=== PATIENT | female | born 1945 | race Caucasian/White ===

== ENCOUNTER 2024-10-08 17:09 | Emergency (ER) | payer MEDICAID ==
[~2024-10-08] VITALS: Ht 162.6 cm; Wt 89.1 kg
[2024-10-08 17:21] VITALS: TEMP 97.4
[2024-10-08 18:08] LABS: MEAN PLATELET VOLUME 7.1 FL (7.4-10.4); RED CELL DISTRIBUTION WIDTH 14.7 % (11.5-14.5)
[2024-10-08 18:21] LABS: CREATININE 0.71 MG/DL (0.40-0.90); TOTAL CARBON DIOXIDE 28.4 MMOL/L (24-32); eCRCL 58 ML/MIN; eGFR 80 ML/MIN
[2024-10-08 18:42] LABS: LYMPHOCYTES % (MANUAL) 74.0 % (21-51); MONOCYTES % (MANUAL) 3.0 % (2-12); NEUTROPHILS % (MANUAL) 23.0 % (42-75)
[2024-10-08 18:43] LABS: PLATELET ESTIMATE NORMAL
--- NOTE | 2024-10-08 19:56 | Physician Documentation ---
History of Present Illness ~ Chief Complaint: Diarrhea Stated Complaint: HEADACHE Time Seen by MD: 19:49 HPI Patient presents to the emergency room with generalized body aches headache dysuria and diarrhea that began yesterday. No sick contacts. She does have history of asthma as well as leukemia. She reports that she is not taking chemo because her doctor told her that it was not bad enough that she would need to take this medicine. No recent antibiotics. Reports subjective fevers. Medication Reconciliation Allergies: Coded Allergies: codeine (Verified Allergy, Unknown, 10/08/24) Review of Systems ROS All review of systems negative except as per HPI Physical Exam Vital Signs: Temperature: 97.4, Source: Temporal, Heart Rate: 67, Respiratory Rate: 16, BP: 119/65, Pulse Oximetry: 99, Weight: 89.100 Oxygen Flow Rate: 0 Physical Exam General: Patient is awake, alert, oriented x4 in no acute distress Head: Normocephalic and atraumatic. Eyes: Conjunctival normal. EOMI. PERRL. ENT: Mucous membranes moist. Neck: Supple, trachea is midline. Chest: Clear to auscultation bilaterally without rales, rhonchi, or wheezes. There is no accessory muscle use or retractions. Cardiac: RRR without murmurs, gallops, or rubs. Abd: Soft, nondistended, nontender, with normoactive bowel sounds. No guarding, rebound, or rigidity. Progress Progress Note We are able to obtain some labs from December 13, 2023 from [facility] which showed patient's white blood cell count at that time was 27.4. Results/Orders Results/Orders Orders - ABDULAZIZ KNIGHT MD Culture Blood (10/08/24 19:57) Covid19 Binax Poc Result Entry (10/08/24 19:59) Ketorolac Trometh 15mg/Ml Vial (Toradol (10/09/24 00:40) Acetaminophen 1,000mg/100ml Iv (Ofirmev (10/09/24 00:40) Completed Orders - ABDULAZIZ KNIGHT MD Procalcitonin (10/08/24 19:57) Lacticsepsis (10/08/24 19:57) Normal Saline 1000ml (0.9% Sodium Chlori (10/08/24 20:00) Ceftriaxone/H4x-Xpllzfag 1gm (Rocephin 1 (10/08/24 20:00) Loperamide Capsule (Imodium Capsule) (10/08/24 20:15) Ua W/Microscopic, Cult If Ind (10/08/24 22:17) Medications Received in ER Medications (Trade) Dose Ordered Sig/Dede Route PRN Reason Start Time Stop Time Status Last Admin Dose Admin Sodium Chloride 1,000 ml @ 1,000 mls/hr ONCE ONCE IV 10/08/24 20:00 10/08/24 20:59 DC 10/08/24 21:08 1,000 MLS/HR Ceftriaxone Sodium 50 ml @ 100 mls/hr ONCE ONCE IV 10/08/24 20:00 10/08/24 20:29 DC 10/08/24 21:08 100 MLS/HR (Imodium capsule) 4 mg ONCE ONCE PO 10/08/24 20:15 10/08/24 20:16 DC 10/08/24 21:07 4 MG Vital Signs 10/08/24 10/08/24 10/08/24 10/09/24 17:21 21:21 21:21 00:02 Temp 97.4 Pulse 67 55 59 Resp 16 16 16 16 B/P (MAP) 119/65 115/48 (70) 119/76 (90) Pulse Ox 99 95 98 O2 Flow Rate 0 0 0 Laboratory Tests Test 10/08/24 17:50 10/08/24 22:05 10/08/24 22:17 White Blood Count 23.8 H Red Blood Count 3.39 L Hemoglobin 11.4 L Hematocrit 33.2 L Mean Corpuscular Volume 98.0 Mean Corpuscular Hemoglobin 33.7 H Mean Corpuscular Hemoglobin Concent 34.3 Red Cell Distribution Width 14.7 H Platelet Count 170 Mean Platelet Volume 7.1 L Neutrophils (%) (Auto) 17.3 L Lymphocytes (%) (Auto) 80.5 H Monocytes (%) (Auto) 1.8 L Eosinophils (%) (Auto) 0.3 Basophils (%) (Auto) 0.1 Neutrophils # (Auto) 4.1 Lymphocytes # (Auto) 19.2 H Monocytes # (Auto) 0.4 Eosinophils # (Auto) 0.1 Basophils # (Auto) 0.0 CBC Comment Differential Total Cells Counted 100 Neutrophils % (Manual) 23.0 L Lymphocytes % (Manual) 74.0 H Monocytes % (Manual) 3.0 Smudge Cells 2+ Platelet Estimate Normal Red Blood Cell Morphology Perf Polychromasia Few Basophilic Stippling Anisocytosis 1+ Macrocytosis 1+ Sodium Level 140 Potassium Level 3.7 Chloride Level 107 Carbon Dioxide Level 28.4 Anion Gap 5 L Blood Urea Nitrogen 10 Creatinine 0.71 Estimated GFR/1.73 m2 80 BUN/Creatinine Ratio 14.1 Glucose Level 112 H Lactic Acid Level 0.9 Calcium Level 8.8 Albumin 3.7 Procalcitonin < 0.05 Chemistry Comments SARS-CoV-2 Antigen (Rapid) Positive *A Urine Specimen Description Non-specified Urine Color Straw Urine Clarity Slightly cloudy Urine pH 6.0 Urine Specific [place] 1.015 Urine Protein Negative Urine Glucose (UA) Negative Urine Ketones Negative Urine Occult Blood Trace-intact Urine Nitrite Negative Urine Bilirubin Negative Urine Urobilinogen 1.0 Urine Leukocyte Esterase Negative Urine RBC 0-2 Urine WBC 0-4 Urine Squamous Epithelial Cells Moderate Urine Bacteria 1+ Urine Mucus Moderate Urine Culture Indicated Not ind Volume Urine Centrifuged 10 ml Urine Comment Microbiology Date/Time Source Procedure Growth Status 10/08/24 20:10 Blood Arm Left Blood Culture - Preliminary NEGATIVE (LESS THAN 24 HOURS) Resulted Medical Decision Making Findings Patient presents to the emergency room with diarrhea body aches and headache as per HPI. Differentials include but are not limited to dehydration, electrolyte disturbances, viral syndrome, pneumonia therefore emergent labs and imaging indicated. Labs and imaging reassuring aside from COVID. She is responding to therapy. The need to control her body aches and symptoms with [id number] remedies discussed however she does not have any ibuprofen or Tylenol home therefore write a prescription for this as well as Paxlovid and loperamide. ER precautions discussed. She is nontoxic appearing with stable vitals. She does have elevated white blood cell counts however given her history of reported leukemia along with comparing her current labs previous labs I do not believe this represents bacterial infection. The need to follow up with her doctor discussed. Departure Disposition: HOME / SELF CARE / HOMELESS Impression: Primary Impression: COVID-19 Condition: Stable Discharge Instructions: Viral Illness, Adult Additional Instructions: Controlling your symptoms with ibuprofen and Tylenol and make you feel so much better. Encourage fluids. Follow up with your doctor regarding management of your reported leukemia. White blood cell count today was 23. Referrals: NO PRIMARY CARE PROVIDER (PCP) Prescriptions Loperamide Hcl (Loperamide) 2 Mg Capsule 2 CAP PO Q6H for loose stool for 5 Days, #40 CAP 0 Refills Prov: ABDULAZIZ KNIGHT MD 10/09/24 Acetaminophen (Tylenol Extra Strength) 500 Mg Tablet 2 TABLET PO Q6H, #30 TABLET 1 Refill Prov: ABDULAZIZ KNIGHT MD 10/09/24 Ibuprofen* (Motrin*) 400 Mg Tablet 400 MG PO Q6H, #30 TAB Prov: ABDULAZIZ KNIGHT MD 10/09/24 Nirmatrelvir/Ritonavir (Paxlovid 300-100 mg Dose Pack) 300 Mg (150 Mg X 2)-100 Mg Tab.ds.pk 1 DOSPAK PO BID for 5 Days, #1 BOXS Prov: ABDULAZIZ KNIGHT MD 10/09/24 Education Educated: Patient Educated regarding: diagnosis, treatment, need for follow up Signature Scribe Signature: No scribe Attestation: The note accurately reflects work and decisions made by me.Abdulaziz Knight MD 10/09/24 00:44 ABDULAZIZ KNIGHT MD Oct 08, 2024 19:56
[2024-10-08] MEDS: loperamide 2mg capsule PO ONE (21:07)
[2024-10-08] MEDS: normal saline 1000ml 1,000 ML IV ONE (21:08)
[2024-10-08] MEDS: CefTRIAXone/D5W-Rocephin 1gm 50 ML IV ONE (21:08)
[2024-10-08 22:28] LABS: LEUKOCYTE ESTERASE ,URINE NEGATIVE (Neg); NITRITES, URINE NEGATIVE (Neg); OCCULT BLOOD,URINE TRACE-INTACT (Neg)
[2024-10-08 22:29] LABS: UA COLLECTION TYPE NON-SPECIFIED
[2024-10-08 22:33] LABS: MUCUS STRANDS MODERATE /LPF (Neg); SQUAMOUS EPITHELIAL CELL,UR MODERATE /LPF (FEW)
[2024-10-09] MEDS ORDERED: ACET-812 PO (00:44)
[2024-10-09] MEDS ORDERED: IBUP-1984 PO (00:44)
[2024-10-09] MEDS ORDERED: NIRM1TAB13 PO (00:44)
[2024-10-09] MEDS ORDERED: LOPE2CAP PO (00:44)
[2024-10-09] MEDS: ketorolac trometh 15mg/ml vial 15 MG/ML ML IV ONE (00:56)
[2024-10-09] MEDS: acetaminophen 1,000mg/100ml IV 100 ML IV ONE (00:57)
[2024-10-09 01:02] VITALS: BP 138/75; PULSE 54; RESP 16; O2SAT 98
== END 2024-10-09 01:36 | disposition home or self-care (01) ==
LOC: ER 17:10
DX: U07.1 COVID-19 (principal); J45.909 Unspecified asthma, uncomplicated; Z88.5 Allergy status to narcotic agent; Z20.822 Contact with and (suspected) exposure to COVID-19
CPT/HCPCS: 36415; 80048; 81001; 83605; 84145; 85025; 87040; 87811; 96365; 96366; 96375; 99284; J0131; J0696; J1885; J7030; 85007

== ENCOUNTER 2024-10-27 19:23 | Inpatient (IN) | payer MEDICAID ==
[~2024-10-27] VITALS: Ht 162.6 cm; Wt 73.0 kg
[~2024-10-27 19:23] MED LIST: ACET-812 PO; IBUP-1984 PO; LOPE2CAP PO; NIRM1TAB13 PO
--- NOTE | 2024-10-27 20:31 | RADIOLOGY REPORT ---
CLINICAL INDICATION: abdominal pain TECHNIQUE: 2 radiographic views of the abdomen and pelvis were obtained. Comparison: None FINDINGS/IMPRESSION: Nonspecific bowel gas pattern. No evidence of bowel obstruction or ileus. Moderate to large amount of fecal material within the colon with rectal fecal impaction. Nonspecific 2.9 by 2.4 cm density within the right hemipelvis. CT should be considered for further ev aluation. Phleboliths are noted within the pelvis. No evidence of acute osseous abnormalities.
[2024-10-27] MEDS ORDERED: iohexol 300mg/ml 100ml inj. ONE (21:26)
[2024-10-27 21:42] LABS: MEAN PLATELET VOLUME 7.3 FL (7.4-10.4)
[2024-10-27 21:43] LABS: RED CELL DISTRIBUTION WIDTH 14.1 % (11.5-14.5)
[2024-10-27 22:01] LABS: CREATININE 0.92 MG/DL (0.40-0.90); TOTAL CARBON DIOXIDE 25.8 MMOL/L (24-32); eCRCL 45 ML/MIN; eGFR 59 ML/MIN
[2024-10-27 22:16] LABS: EOSINOPHILS % (MANUAL) 1 % (0-6); LYMPHOCYTES % (MANUAL) 78 % (21-51); MONOCYTES % (MANUAL) 1 % (2-12); NEUTROPHILS % (MANUAL) 21 % (42-75); PLATELET ESTIMATE NORMAL
[2024-10-27] MEDS: normal saline 1000ML IV soln IVB ONE (22:56)
[2024-10-27] MEDS: lactulose 20gm/30ml cup PO ONE (23:36)
[2024-10-27 23:47] LABS: LEUKOCYTE ESTERASE ,URINE MODERATE (Neg); NITRITES, URINE NEGATIVE (Neg); OCCULT BLOOD,URINE MODERATE (Neg)
[2024-10-27 23:48] LABS: UA COLLECTION TYPE NON-SPECIFIED
--- NOTE | 2024-10-27 23:51 | Physician Documentation ---
History of Present Illness ~ Chief Complaint: Constipation Stated Complaint: ABD PAIN/CONSTIPATION Time Seen by MD: 20:58 OK to notify your PCP?: Yes Source: patient HPI This is a 78-year-old female who presents with two days of constipation and worsening lower abdominal discomfort, patient reports last bowel movement two days prior. Patient reports no vomiting. Patient reports no other acute symptoms or concerns. Medication Reconciliation Allergies: Coded Allergies: codeine (Verified Allergy, Unknown, 10/08/24) Scheduled Acetaminophen (Tylenol Extra Strength), 2 TABLET PO Q6H Ibuprofen* (Motrin*), 400 MG PO Q6H Loperamide Hcl (Loperamide), 2 CAP PO Q6H Nirmatrelvir/Ritonavir (Paxlovid 300-100 mg Dose Pack), 1 DOSPAK PO BID Past Medical History Past Medical History: Leukemia Smoking Status: Never smoker Review of Systems All Other Systems at this time: Reviewed and Negative ROS As stated above in the HPI, otherwise all systems are reviewed and negative. Physical Exam Vital Signs: RN Vital Signs have been reviewed: Yes, Temperature: 98.7, Source: Oral, Heart Rate: 81, Respiratory Rate: 16, BP: 119/65, Pulse Oximetry: 96, Weight: 73.000 Oxygen Flow Rate: 0 Physical Exam VITALS: Reviewed and as above. GENERAL: Alert, nontoxic appearing, no apparent distress. RESPIRATORY: No increased work of breathing, no respiratory distress, speaking in full clear sentences, clear lung sounds in all koo CV: Regular rate and rhythm no murmur BACK: No CVA tenderness GI: Mild lower abdomen tenderness otherwise nontender to palpation, soft, nondistended, no rebound, no guarding, bowel sounds present and normal Progress Progress Note 1:00 a.m. discussed the case with the hospitalist regarding admission Results/Orders Results/Orders Orders - KAYODE HELMS Saline Lock (10/27/24 21:17) Straight Cath For Urine Sample (10/27/24 21:17) Ct Abdomen Pelvis (10/27/24 21:17) * Soap Suds Enema* (10/27/24 23:02) Cult Urine + [place] Ct (10/27/24 23:54) Completed Orders - KAYODE EHLMS Cbc/Diff (10/27/24 21:17) Lipase (10/27/24 21:17) CMP (10/27/24 21:17) Ct Abdomen Pelvis (10/27/24 21:17) BMP (10/27/24 21:17) Iohexol 300mg/Ml 100ml Inj. (Omnipaque-3 (10/27/24 21:26) Man Diff (10/27/24 21:34) Normal Saline 1000ml (0.9% Sodium Chlori (10/27/24 22:25) Lactulose Oral Solution (Cephulac Oral S (10/27/24 23:05) Ua W/Microscopic, Cult If Ind (10/27/24 23:40) PBNP (10/27/24 21:34) Hgb A1c (10/27/24 21:34) MG (10/27/24 21:34) PHOS (10/27/24 21:34) Vital Signs 10/27/24 10/27/24 10/28/24 19:30 22:05 01:00 Temp 98.7 98.6 98.6 Pulse 81 80 78 Resp 16 18 18 B/P (MAP) 119/65 118/64 (82) 116/60 (78) Pulse Ox 96 99 99 O2 Flow Rate 0 Laboratory Tests Test 10/27/24 21:34 10/27/24 23:40 White Blood Count 22.4 H Red Blood Count 3.14 L Hemoglobin 10.5 L Hematocrit 31.3 L Mean Corpuscular Volume 99.7 H Mean Corpuscular Hemoglobin 33.5 H Mean Corpuscular Hemoglobin Concent 33.6 Red Cell Distribution Width 14.1 Platelet Count 171 Mean Platelet Volume 7.3 L Neutrophils (%) (Auto) 25.6 L Lymphocytes (%) (Auto) 71.8 H Monocytes (%) (Auto) 2.2 Eosinophils (%) (Auto) 0.3 Basophils (%) (Auto) 0.1 Neutrophils # (Auto) 5.7 Lymphocytes # (Auto) 16.1 H Monocytes # (Auto) 0.5 Eosinophils # (Auto) 0.1 Basophils # (Auto) 0.0 CBC Comment Differential Total Cells Counted 100 Neutrophils % (Manual) 21 L Lymphocytes % (Manual) 78 H Monocytes % (Manual) 1 L Eosinophils % (Manual) 1 Smudge Cells 3+ Platelet Estimate Normal Red Blood Cell Morphology Perf Basophilic Stippling Macrocytosis Few Sodium Level 145 Potassium Level 3.8 Chloride Level 111 H Carbon Dioxide Level 25.8 Anion Gap 8 Blood Urea Nitrogen 17 Creatinine 0.92 H Estimated GFR/1.73 m2 59 BUN/Creatinine Ratio 18.5 Glucose Level 97 Hemoglobin A1c < 3.8 L Calcium Level 9.0 Phosphorus Level 3.7 Magnesium Level 2.6 H Total Bilirubin 1.4 H Aspartate Amino Transf (AST/SGOT) 20 Alanine Aminotransferase (ALT/SGPT) 13 Alkaline Phosphatase 83 Pro-B-Type Natriuretic Peptide 352 Total Protein 6.8 Albumin 3.8 Globulin 3.0 Albumin/Globulin Ratio 1.3 Lipase 18 Chemistry Comments Urine Specimen Description Non-specified Urine Color Yi Urine Clarity Cloudy Urine pH 6.0 Urine Specific [place] 1.015 Urine Protein Negative Urine Glucose (UA) Negative Urine Ketones Negative Urine Occult Blood Moderate H Urine Nitrite Negative Urine Bilirubin Negative Urine Urobilinogen 0.2 Urine Leukocyte Esterase Moderate H Urine RBC 10-20 Urine WBC 5-10 H Urine Squamous Epithelial Cells Few Urine Bacteria 3+ Urine Hyaline Casts 3-5 Urine Mucus Many Urine Culture Indicated Indicated Volume Urine Centrifuged 10 ml Urine Comment Microbiology Date/Time Source Procedure Growth Status 10/27/24 23:54 Urine Nonspecified Urine Culture - Preliminary MIXED [place] ISOLATED.... Resulted EKG/XRAY/CT/US/VASC/MRI Abdominal X-Ray : Additional Comment Exam: ABDOMEN,SINGLE VIEW(KUB) CLINICAL INDICATION: abdominal pain TECHNIQUE: 2 radiographic views of the abdomen and pelvis were obtained. Comparison: None FINDINGS/IMPRESSION: Nonspecific bowel gas pattern. No evidence of bowel obstruction or ileus. Moderate to large amount of fecal material within the colon with rectal fecal impaction. Nonspecific 2.9 by 2.4 cm density within the right hemipelvis. CT should be considered for further evaluation. Phleboliths are noted within the pelvis. No evidence of acute osseous abnormalities. Electronically Signed by:MALLORY BE DO Date & Time: 10/27/242028 Dictated by: MALLORY BE DO Dictation date and time: 10/27/242001 I have reviewed and agree with the radiology report. I have reviewed and interpreted the imaging as: No air-fluid levels to suggest bowel obstruction, large stool burden in the colon CT : Impression Exam: CT ABDOMEN PELVIS CLINICAL HISTORY: Lower Abd Pain TECHNIQUE: CT of the abdomen and pelvis was performed with intravenous contrast. 100 mL Omnipaque 300 injected This exam was performed according to our departmental dose optimization program. Up-to-date CT equipment and radiation dose reduction techniques are utilized as appropriate. CTDIVol: 30.17 mGy DLP: 1507.62 mGy-cm WID: COMPARISON: None FINDINGS: Lower Thorax: Normal-sized heart. Linear bibasilar scarring or atelectasis. Liver and Biliary system: Prior cholecystectomy, otherwise unremarkable. Spleen: Unremarkable. Adrenal Glands and Kidneys: Normal adrenal glands. There is bilateral renal cortical scarring. No hydronephrosis or nephrolithiasis. Pancreas and Retroperitoneum: Unremarkable. Aorta and Major Vessels: Aortoiliac vessels are patent and normal caliber with mild calcified atherosclerotic plaque. Bowel, Mesentery and Peritoneal space: Mildly dilated rectum measuring 7.3 cm AP containing impacted moderate stool. Normal caliber small and large bowel. There is pancolonic diverticulosis, moderate distally. No free air or fluid collection. Moderate retained stool in the colon. Pelvis: Prior hysterectomy. Urinary bladder is mildly distended. There is no pelvic lymphadenopathy. Abdominal wall and Osseous Structures: Small fat containing bilateral inguinal and umbilical hernias. Multilevel lower thoracic and lumbar spondylosis. IMPRESSION: 1. Mildly dilated rectum containing moderate impacted stool. 2. Moderate retained stool in the colon. 3. Pancolonic diverticulosis, moderate distally. Electronically Signed by:JAJA YAÑEZ MD Date & Time: 10/28/24125 Dictated by: JAJA YAÑEZ MD Dictation date and time: 10/28/24125 I have reviewed and agree with the radiology report. I have reviewed and interpreted the imaging as: Large stool burden, No evidence of intraperitoneal free air Medical Decision Making Findings This 78-year-old female presented with two days of constipation and lower abdomen discomfort, physical exam did not demonstrate significant tenderness to palpation of the abdomen to make me suspect emergent cause of abdominal pain, imaging demonstrated evidence of significant stool burden consistent with patient's described constipation, I suspect discomfort in lower abdomen related to stool burden. CT abdomen and pelvis with contrast obtained and demonstrated diverticulitis and large stool burden without evidence of bowel perforation, appendicitis, or bowel obstruction. Of note patient did have an elevated WBC, though review of previous records indicate patient has history of leukemia and WBC is slightly lower from previous visit which is reassuring, though given e vidence of urinary tract infection and diverticulitis patient will require admission for IV antibiotics and further evaluation and monitoring. Patient treated with rehydration and lactulose for constipation. Enema by nursing staff resulted in patient beginning to pass stool. Case discussed and signed out to ED attending Dr. Mariscal prior to call back from hospitalist. Diff Dx Pain:Considerations: Include: Appendicitis, Bowel obstruction, Diverticular disease, Gastritis/PUD, Gastroenteritis, GI hemorrhage, Hernia, Inflammatory BD, Ischemic bowel, Urinary obstruction, Urinary tract infection Departure Disposition: ADMITTED INPATIENT Admitted to Inpatient Unit: to hospitalist Impression: Primary Impression: Constipation Qualified Codes: K59.00 - Constipation, unspecified Additional Impressions: Fecal impaction Acute UTI (urinary tract infection) Leukemia Qualified Codes: C95.90 - Leukemia, unspecified not having achieved rem ission Condition: Improved Discharge Instructions: Constipation, Adult Referrals: NO PRIMARY CARE PROVIDER (PCP) Education Educated: Patient Educated regarding: diagnosis, treatment, prognosis, need for follow up Signature Scribe Signature: No scribe Attestation: The note accurately reflects work and decisions made by me.SERENA Oliva 10/29/24 15:06 KAYODE HELMS Oct 27, 2024 23:51 INDY MARISCAL MD Oct 28, 2024 01:02
[2024-10-27 23:52] LABS: MUCUS STRANDS MANY /LPF (Neg); SQUAMOUS EPITHELIAL CELL,UR FEW /LPF (FEW)
[2024-10-28] VITALS (10 sets, daily range): BP systolic 95–131; BP diastolic 44–68; PULSE 48–64; RESP 14–18; TEMP 97.4–98.2; O2SAT 94–100
--- NOTE | 2024-10-28 01:28 | RADIOLOGY REPORT ---
CLINICAL HISTORY: Lower Abd Pain TECHNIQUE: CT of the abdomen and pelvis was performed with intravenous contrast. 100 mL Omnipaque 300 injected This exam was performed according to our departmental dose optimization program. Up-to-date CT equipment and radiation dose reduction techniques are utilized as appropriate. CTDIVol: 30.17 mGy DLP: 1507.62 mGy-cm WID: COMPARISON: None FINDINGS: Lower Thorax: Normal-sized heart. Linear bibasilar scarring or atelectasis. Liver and Biliary system: Prior cholecystectomy, otherwise unremarkable. Spleen: Unremarkable. Adrenal Glands and Kidneys: Normal adrenal glands. There is bilateral renal cortical scarring. No hyd ronephrosis or nephrolithiasis. Pancreas and Retroperitoneum: Unremarkable. Aorta and Major Vessels: Aortoiliac vessels are patent and normal caliber with mild calcified atheros clerotic plaque. Bowel, Mesentery and Peritoneal space: Mildly dilated rectum measuring 7.3 cm AP containing impacted moderate stool. Normal caliber small and large bowel. There is pancolonic diverticulosis, moderate di stally. No free air or fluid collection. Moderate retained stool in the colon. Pelvis: Prior hysterectomy. Urinary bladder is mildly distended. There is no pelvic lymphadenopathy. Abdominal wall and Osseous Structures: Small fat containing bilateral inguinal and umbilical hernias. Multilevel lower thoracic and lumbar spondylosis. IMPRESSION: 1. Mildly dilated rectum containing moderate impacted stool. 2. Moderate retained stool in the colon. 3. Pancolonic diverticulosis, moderate distally.
[2024-10-28 01:35] LABS: PRO BRAIN NATRIURETIC PEPTIDE 352 PG/ML (0-450)
[2024-10-28] MEDS ORDERED: ondansetron/PF 4mg/2ml inj IV PRN (01:40)
[2024-10-28] MEDS ORDERED: potassium Cl 40MEQ/1/2NS 520ml 520 ML IV PRN (01:40)
[2024-10-28] MEDS ORDERED: magnesium sulf-water 2g/50mL 50 ML IV PRN (01:40)
[2024-10-28] MEDS ORDERED: mag hydrox/Alum hydrox/simeth 30ml oral suspension PO PRN (01:40)
[2024-10-28] MEDS ORDERED: potassium Cl 20 mEq SR tablet PO PRN ×2 (01:40)
[2024-10-28] MEDS ORDERED: magnesium Cl slow-release 64mg tablet PO PRN (01:40)
[2024-10-28] MEDS ORDERED: magnesium hydroxide 30ml (MOM) UD suspension PO PRN (01:40)
[2024-10-28] MEDS ORDERED: magnesium sulf-water 4G/100mL 100 ML IV PRN (01:40)
[2024-10-28 02:07] LABS: PHOSPHORUS 3.7 MG/DL (2.3-4.5)
--- NOTE | 2024-10-28 02:16 | HISTORY AND PHYSICAL-Residence ---
History & Physical Providers to CC Resident Creating Document: ARIC MCGILL, RES ~ History of Present Illness Reason for Admit\Complaint: Acute abdominal pain, UTI History of Present Illness 78-year-old female with past medical history of leukemia, COPD presented to the ER with chief complaint of lower abdominal pain and not being able to pass stools since the last two days. She reports that she has not been able to pass any stools since the last two days but has a a feeling where she needs to pass stools but is not able to do so. She mentioned that the passing stools has been getting worse with the increasing lower abdominal pain and rates his abdominal pain nine on a scale of 10. The patient also mentioned that she has been having increased urinary frequency and urgency over the last two days associated with fever and chills during the night. She denied any similar concerns or complaints in the past. The patient denied any episodes of nausea or vomiting. The patient currently denies any headaches, confusion, dizziness, nausea, vomiting, chest pain, shortness of breath, paroxysmal nocturnal dyspnea. She mentioned that she has been noticing bilateral lower extremity edema with the past few months that has been progressively getting worse. He also mentioned that she has a history of leukemia diagnosed almost one year ago. She does not remember the name of the doctor she was following for the cancer but is currently not following anybody as she has difficulty getting to the DrMalachi. He is not sure which hospital the is practicing and where she is seeing him. [id number] not sure about the name of the clinic Allergies: Coded Allergies: codeine (Verified Allergy, Unknown, 10/08/24) Home Medications Home Medications Active Loperamide (Loperamide Hcl) 2 Mg Capsule 2 Cap PO Q6H 5 Days Tylenol Extra Strength (Acetaminophen) 500 Mg Tablet 2 Tablet PO Q6H Motrin* (Ibuprofen) 400 Mg Tablet 400 Mg PO Q6H Paxlovid 300-100 mg Dose Pack (Nirmatrelvir/Ritonavir) 300 Mg (150 Mg X 2)-100 Mg Tab.ds.pk 1 [place] PO BID 5 Days Past Medical History Past Medical History Leukemia, COPD Past Surgical History Surgical History Comment Hysterectomy Past Social History Social History Comment Lives at a moment's fdc Denies smoking, alcohol, recreational drug use ROS All Other Systems: Reviewed and Negative ROS As stated above in the HPI, otherwise all systems are reviewed and negative. Exam Vitals: Vital Signs Date Time Temp Pulse Resp B/P (MAP) Pulse Ox O2 Delivery O2 Flow Rate FiO2 10/28/24 01:00 98.6 78 18 116/60 (78) 99 10/27/24 19:30 0 General: General: Awake and Alert, no acute distress. HEENT: Conjunctiva pink, Sclera clear, Mucus Membranes moist. Neck: Supple without masses and tenderness. Resp: Unlabored. Lungs clear to auscultation bilaterally. Heart: Regular Rate and rhythm, normal S1 and S2 without murmur, rub or gallop. Abdomen: Soft, tenderness on palpation of the right lower and middle lower quadrant. No guarding or rigidity present. Bowel sounds present. Extremities: Bilateral 2+ pitting edema present in the lower extremity. Skin: Warm and Dry. Neurology: Cranial nerves 2-12 intact. No focal motor or sensory deficits. Diagnostic Data Last Recorded Lab Results: 10/27/24213310/27/242133 Advance Care Planning Advanced Care planning: Add on additional 30 min Additional Plan UTI Patient reports increased urgency and frequency with the last two days associated fever and chills. Urine analysis positive for leukocyte esterase, 5-10 WBCs, 3+ bacteria. Started the patient on IV ceftriaxone. Follow up with the urine culture and blood culture. Continue hydration with IV fluids. Acute abdominal pain Secondary to fecal impaction versus acute on chronic constipation Diverticulosis CT scan of the abdomen/pelvis with IV contrast shows mildly dilated rectum on containing moderate impacted stools with a moderate retention of stool in the colon. There is also found colonic diverticulosis. Follow up with the lactic acid, TSH. Patient had an enema and lactulose given in the ER. Reports that she started having bowel movements and mild in if in her abdominal pain. Continue MiraLax and docusate. IV Protonix for GI prophylaxis Can give one more dose of enema if the patient's fecal impaction is not relieved in the a.m.. Encourage increased fiber intake in the diet. Continue monitoring the patient's electrolytes. Continue supportive care with hydration and pain management. COPD, not in exacerbation Bilateral clear airways. DuoNeb nebulizations q.4 hours as needed. RT eval and treat. Leukemia Elevated WBC of 22.4. Currently not on any treatment for the leukemia. CODE STATUS: DNR DVT prophylaxis: SCDs GI prophylaxis: IV Protonix Diet: Regular Disposition: Continue medical management. Follow up with the urine culture and blood cultures patient Aric Mcgill MD Internal Medicine Resident, PGY-3 I discussed the case with the resident and agree with the assessment and plan as above with no changes. Amarilys Philip MD Critical Care Date of Service: Oct 28, 2024 Billing Provider: AMARILYS PHILIP MD,ARIC CHEEMA, RES Oct 28, 2024 02:16 AMARILYS PHILIP MD Nov 03, 2024 21:34
[2024-10-28] MEDS: CefTRIAXone/D5W-Rocephin 1gm 50 ML IV ONE (02:40)
[2024-10-28 03:00] LABS: LACTATE DEHYDROGENASE 221.0 U/L (81-234)
[2024-10-28] MEDS: normal saline 1000ml 1,000 ML IV ONE (03:00)
[2024-10-28] MEDS: normal saline 1000ml 1,000 ML IV SCH (03:22)
[2024-10-28] MEDS: K and/or MAG REPLACEMENT MC SCH (07:03)
[2024-10-28] MEDS: polyethylene glycol 3350 17gm powd pack PO SCH (07:03)
[2024-10-28] MEDS: docusate sod 100mg capsule PO SCH (08:00)
[2024-10-28] MEDS ORDERED: mineral oil 133ml enema RC PRN (08:25)
[2024-10-28] MEDS: ipratropium/albuterol 3ml nebule NEB PRN (16:01)
--- NOTE | 2024-10-28 17:43 | CARDIOLOGY REPORT ---
APPROVED REPORT EXAM: Comprehensive 2D, Doppler, and color-flow Echocardiogram. Patient Location: 349 B Heart Rate: 50'S bpm Rhythm: SINUS BRADYCARDIA Indications CONGESTIVE HEART FAILURE COPD Anodizing Line Operator: NONE Previous echo: NONE 2D Dimensions RVDd 3.6 cm LA Diam3.3 cm LVDd 4.9 cm LVOT Diameter 1.90 (1.8-2.4cm) M-Mode Dimensions Aortic Root 3.27 (2.2-3.7cm) Aortic Valve AoV Peak Bryan. 155.6 cm/s AoV VTI 33.7 cm AO Peak GR. 9.7 mmHg AO Mean GR. 5 mmHg LVOT VTI 26.60 cm LVOT Peak Bryan. 128.4 cm/s PUSHPA(VTI)/BSA 2.25 cm2/m2 PUSHPA (VTI) 2.25 cm2 Mitral Valve MV Peak Gr. 8 mmHg MV PHT 64 ms MVA (PHT) 3.44 cm2 MV OMhl972.2 cm/s Tricuspid Valve TR P. Velocity 268 cm/s RAP ESTIMATE 10 mmHg TR Peak Gr. 29 mmHg RVSP 39 mmHg LEFT VENTRICLE Normal LV size and wall thickness. Overall systolic function is normal. Overall LVEF is 60-65%. RIGHT VENTRICLE RV is mildly dilated with normal function. Estimated PA systolic pressure of 39 mm of mercury. ATRIA The left atrium size is normal. AORTIC VALVE Trileaflet AV appears mildly sclerotic without stenosis. No insufficiency. MITRAL VALVE Mild MV annular calcification without stenosis. Trace regurgitation. TRICUSPID VALVE TV appears structurally normal with trace regurgitation. PULMONIC VALVE Normal PV without stenosis, physiologic insufficiency. GREAT VESSELS The aortic root is normal in size. Normal appearing arch with normal flow velocities. PERICARDIUM Normal pericardium. No effusion. Other Information Study Quality: Adequate but difficult due to imaging windows and patient being uncooperative. Conclusion Overall LVEF is 60-65%. Normal LV size and wall thickness. Overall systolic function is normal. RV is mildly dilated with normal function. Estimated PA systolic pressure of 39 mm of mercury. Trileaflet AV appears mildly sclerotic without stenosis. No insufficiency. Mild MV annular calcification without stenosis. Trace regurgitation. TV appears structurally normal with trace regurgitation. Normal PV without stenosis, physiologic insufficiency. Normal pericardium. No effusion.
[2024-10-28] MEDS: lactose-reduced food (Ensure Enlive) - 237ml bottle PO SCH (18:00)
[2024-10-29 05:05] LABS: MEAN PLATELET VOLUME 7.1 FL (7.4-10.4); RED CELL DISTRIBUTION WIDTH 13.8 % (11.5-14.5)
[2024-10-29 05:31] LABS: CHOL/HDL RATIO 2.5 (0.00-4.99); CREATININE 0.55 MG/DL (0.40-0.90); LDL CHOLESTEROL 70 MG/DL (50-100); TOTAL CARBON DIOXIDE 26.3 MMOL/L (24-32); eCRCL 75 ML/MIN; eGFR > 90 ML/MIN
[2024-10-29 06:00] VITALS: BP 102/41; PULSE 56; RESP 14; TEMP 97.9; O2SAT 98
[2024-10-29 08:30] VITALS: PULSE 67; RESP 17; O2SAT 94
[2024-10-29 08:44] LABS: EOSINOPHILS % (MANUAL) 1.0 % (0-6); LYMPHOCYTES % (MANUAL) 70.0 % (21-51); MONOCYTES % (MANUAL) 2.0 % (2-12); NEUTROPHILS % (MANUAL) 27.0 % (42-75); PLATELET ESTIMATE DECREASED
[2024-10-29] MEDS: CefTRIAXone/D5W-Rocephin 1gm 50 ML IV SCH (09:06)
--- NOTE | 2024-10-29 11:44 | PROGRESS NOTE ---
Daily Progress Note Providers to CC ~ Antibiotic Timeout Antibiotic Ordered?: Yes Subjective No acute events overnight. Patient examined at bedside. No new complaints, not in acute distress. Patient denies chest pain, sob, palpitations, abdominal pain, n/v/d. Vss, labs notable for downtrending Cr on IVF. Objective Vital Signs Date Time Temp Pulse Resp B/P (MAP) Pulse Ox O2 Delivery O2 Flow Rate FiO2 10/29/24 08:30 67 17 94 Room Air* 0 21 10/29/24 06:00 97.9 102/41 (61) Result Diagram: 10/29/2443410/29/24434 Physical Exam General: Generalized weakness, A&Ox 3, NAD HEENT: Normocephalic, PERRLA Neck: Supple, trachea midline, no JVD Chest: Clear to auscultation bilaterally Cardiovascular: RRR, S1&S2 GI: Soft and nontender Extremities: No cyanosis/clubbing/or edema ACCOUNTANT MANAGER: CN II-XII intact, no focal deficits Musculoskeletal: No paraspinal muscle tenderness, no muscle spasm Skin: Warm and intact Problem\Assessment\Plan Assessment & Plan UTI Prerenal HILARY 2/2 dehydration/vasomotor nephropathy- POA Fecal impaction -Rocephin, IVF, had BM with stool softner/laxatives COPD, not in exacerbation -prn bronchodilator CLL -monitor CODE STATUS: DNR Date of Service: Oct 29, 2024 Billing Provider: DARRELL MEADOWS Common Visit Codes: [id number] INP/OBS CARE(HIGH) DARRELL MEADOWS Oct 29, 2024 11:44
[2024-10-29 13:24] VITALS: BP 104/47; PULSE 53; RESP 18; TEMP 97.1; O2SAT 96
[2024-10-29 18:00] VITALS: BP 102/42; PULSE 50; RESP 17; TEMP 97.5; O2SAT 97
[2024-10-29] MEDS: docusate sod 100mg capsule PO SCH (19:31)
[2024-10-29 20:59] VITALS: PULSE 52; RESP 16; O2SAT 97
[2024-10-29 22:00] VITALS: BP 120/53; PULSE 68; RESP 22; TEMP 97.7; O2SAT 98
[2024-10-30 05:19] LABS: MEAN PLATELET VOLUME 7.5 FL (7.4-10.4)
[2024-10-30 05:22] LABS: RED CELL DISTRIBUTION WIDTH 13.6 % (11.5-14.5)
[2024-10-30 05:41] LABS: CREATININE 0.64 MG/DL (0.40-0.90); TOTAL CARBON DIOXIDE 26.8 MMOL/L (24-32); eCRCL 65 ML/MIN; eGFR 90 ML/MIN
[2024-10-30 06:31] VITALS: BP 116/51; PULSE 47; RESP 14; TEMP 97.8; O2SAT 99
[2024-10-30 07:12] VITALS: PULSE 52; RESP 18; O2SAT 98
[2024-10-30 08:16] VITALS: BP 116/71; PULSE 50; RESP 14; TEMP 98.5; O2SAT 97
[2024-10-30 08:25] VITALS: BP 116/71; PULSE 50; RESP 14; TEMP 98.5; O2SAT 97
[2024-10-30 08:29] VITALS: RESP 14; O2SAT 97
[2024-10-30 09:22] LABS: EOSINOPHILS % (MANUAL) 1.0 % (0-6); LYMPHOCYTES % (MANUAL) 70.0 % (21-51); MONOCYTES % (MANUAL) 2.0 % (2-12); NEUTROPHILS % (MANUAL) 27.0 % (42-75); PLATELET ESTIMATE DECREASED
[2024-10-30] MEDS ORDERED: DOCU100C40 PO (10:08)
[2024-10-30] MEDS ORDERED: PANT40TA54 PO (10:09)
[2024-10-30 11:27] VITALS: BP 115/42; PULSE 58; RESP 17; TEMP 97.5; O2SAT 99
--- NOTE | 2024-10-30 14:32 | DISCHARGE SUMMARY ---
Discharge Summary Providers to CC ~ Discharge Summary Admission Diagnosis: UTI, HILARY, ACUTE ABDOMINAL PAIN 2/2 FECAL IMPACTION, CHRONIC CONSTIPATION Hospital Course DATE OF ADMISSION: 10/28/24 DATE OF DISCHARGE: 10/30/24 Discharge Diagnosis\\Comment: Prerenal HILARY 2/2 dehydration/vasomotor nephropathy- POA UTI Fecal impaction Chronic constipation Operations\\Procedures: None Consultants: None Complications: None Condition on DC: Stable New Medications: Docusate Sodium (Docusate Sodium) 100 Mg Caps 1 CAP PO Q12H for constipation for 30 Days, #60 CAP 0 Refills Pantoprazole Sodium (Pantoprazole Sodium) 40 Mg Tablet.dr 40 MG PO DAILY for 30 Days, #30 TAB.SR Continued Medications: Acetaminophen (Tylenol Extra Strength) 500 Mg Tablet 2 TABLET PO Q6H, #30 TABLET 1 Refill Discontinued Medications: Ibuprofen* (Motrin*) 400 Mg Tablet 400 MG PO Q6H, #30 TAB Loperamide Hcl (Loperamide) 2 Mg Capsule 2 CAP PO Q6H for loose stool for 5 Days, #40 CAP 0 Refills Nirmatrelvir/Ritonavir (Paxlovid 300-100 mg Dose Pack) 300 Mg (150 Mg X 2)-100 Mg Tab.ds.pk 1 DOSPAK PO BID for 5 Days, #1 BOXS Discharge Summary: History of Present Illness From H&P: "78-year-old female with past medical history of leukemia, COPD presented to the ER with chief complaint of lower abdominal pain and not being able to pass stools since the last two days. She reports that she has not been able to pass any stools since the last two days but has a a feeling where she needs to pass stools but is not able to do so. She mentioned that the passing stools has been getting worse with the increasing lower abdominal pain and rates his abdominal pain nine on a scale of 10. The patient also mentioned that she has been having increased urinary frequency and urgency over the last two days associated with fever and chills during the night. She denied any similar concerns or complaints in the past. The patient denied any episodes of nausea or vomiting. The patient currently denies any headaches, confusion, dizziness, nausea, vomiting, chest pain, shortness of breath, paroxysmal nocturnal dyspnea. She mentioned that she has been noticing bilateral lower extremity edema with the past few months that has been progressively getting worse. He also mentioned that she has a history of leukemia diagnosed almost one year ago. She does not remember the name of the doctor she was following for the cancer but is currently not following anybody as she has difficulty getting to the Dr. Patient is not sure which hospital the is practicing and where she is seeing him." Hospital Course Diagnostic findings were notable for abnormal renal function test, x-ray of abdomen revealing moderate to large amount of fecal material within colon with rectal fecal impaction. A subsequent CT abdomen/pelvis revealed mildly dilated rectum containing moderate impacted stool. Patient was treated with stool softener and laxatives. Other diagnostic findings were notable for urinalysis positive for urinary tract infection in which patient was treated with empirical antibiotics for. With the start of treatment, abdominal pain resolved, acute kidney injury resolving, and good bowel movement was made. Patient did not experience further complications throughout the entire hospital stay. Patient was seen and examined on the day of discharge. On day of discharge, vss and labs unremarkable. 1/2 blood cultures positive for Staph hominis and Alpha-hem strep which is likely the contaminant. TTE reveals LVEF of 60-65%, RVSP 39mmHg, no s igns vegetation, no significant valvular heart disease. All labs, diagnostic workups, discharge plan discussed with patient in details during visit before discharge. All questions and concerns answered to the best of my professional knowledge. Patient is to be discharged to home to self and to follow-up with PCP within 2 weeks. Physical Exam General: A&Ox 3, NAD HEENT: Normocephalic, PERRLA Neck: Supple, trachea midline, no JVD Chest: Clear to auscultation bilaterally Cardiovascular: RRR, S1&S2 GI: Soft and nontender Extremities: No cyanosis/clubbing/or edema VOLUNTEER ASSISTANT: CN II-XII intact, no focal deficits Musculoskeletal: No paraspinal muscle tenderness, no muscle spasm Skin: Warm and intact *Problems/Diagnosis: (1) Fecal impaction Status: Acute (2) Acute UTI (urinary tract infection) Status: Acute Total Time Spent on D/C: > 30 Minutes Date of Service: Oct 30, 2024 Billing Provider: DARRELL MEADOWS Common Visit Codes: 76874-HEV/OBS DISCH DAY >30min DARRELL MEADOWS Oct 30, 2024 14:31
== END 2024-10-30 15:07 | disposition home or self-care (01) | DRG 247 ==
LOC: ER 19:24 → ED HOLD 10-28 01:47 → SUR 3N 10-28 03:12
PROVIDERS: ADMIT Internal Medicine Pulmonary Disease; ATTEND Nurse Practitioner Family
PROC: BW211ZZ Computerized Tomography (CT Scan) of Abdomen and Pelvis using Low Osmolar Contrast (ICD-10-PCS; principal; 2024-10-27)
DX: K56.41 Fecal impaction (principal); N17.0 Acute kidney failure with tubular necrosis; Z66 Do not resuscitate; N39.0 Urinary tract infection, site not specified; C95.90 Leukemia, unspecified not having achieved remission; J44.9 Chronic obstructive pulmonary disease, unspecified; Z88.5 Allergy status to narcotic agent
CPT/HCPCS: 36415; 74018; 74177; 80053; 80061; 81001; 83036; 83605; 83615; 83690; 83735; 83880; 84100; 84132; 84145; 84443; 85007; 85025; 87040; 87077; 87081; 87088; 87186; 93306; 94640; 94760; 97110; 97116; 97161; 97530; 99285; A6258; G0378; J0696; J2270; J2470; J7030; Q9967

== ENCOUNTER 2024-11-08 14:44 | Inpatient (IN) | payer MEDICAID ==
[~2024-11-08] VITALS: Ht 170.2 cm; Wt 99.6 kg
[~2024-11-08 14:44] MED LIST changes: +DOCU100C40 PO; -IBUP-1984 PO; -LOPE2CAP PO; -NIRM1TAB13 PO; +PANT40TA54 PO
--- NOTE | 2024-11-08 15:47 | Physician Documentation ---
History of Present Illness Chief Complaint: Abdominal Pain Stated Complaint: ABDOMINAL PAIN Time Seen by MD: 15:47 HPI Patient is a 78-year-old female with a presents to the emergency department for evaluation of abdominal pain lower right leg and hip pain times 3-4 days. Reports that she was admitted to the hospital for approximately four days and has been home for for almost five days now. Reports multiple days of diarrhea since her discharge the diarrhea has now subsided. Reports lower abdominal pain primarily on the left lower quadrant but extending into the right lower quadrant. Patient describes pain originating in her but into her left thigh at the bone radiating down to her knee. Patient has a poor historian difficult time recalling information in somewhat cantankerous when pushed for additional information. Medication Reconciliation Allergies: Coded Allergies: codeine (Verified Allergy, Unknown, 11/08/24) Scheduled Acetaminophen (Tylenol Extra Strength), 2 TABLET PO Q6H Docusate Sodium (Docusate Sodium), 1 CAP PO Q12H Pantoprazole Sodium (Pantoprazole Sodium), 40 MG PO DAILY Past Medical History Past Medical History: Leukemia Patient History: Patient reports no known family medical history. Review of Systems ROS As stated above in the HPI, otherwise all systems are reviewed and negative. Physical Exam Vital Signs: Temperature: 97.8, Source: Oral, Heart Rate: 60, Respiratory Rate: 18, BP: 119/74, Pulse Oximetry: 98, Weight: 99.600 Oxygen Flow Rate: 0 Physical Exam VITALS: Reviewed and as above. GENERAL: Alert, no apparent distress. HEENT: Normocephalic, atraumatic, PERRL, EOMI, dry mucosa, no erythema RESPIRATORY: Lungs clear, normal breath sounds, no respiratory distress. CHEST: No accessory muscle use, no retractions CV: Regular rate, rhythm, no edema, no murmur, No: JVD GI: Soft, tender with palpation to the right and left lower quadrants, bowels sounds present, no rebound, guarding, or rigidity BACK: No CVA tenderness, or swelling MUSCULOSKELETAL No deformities, no edema, pain to the right buttock right thigh and right knee. SKIN: Warm and dry, no rash NEURO: Oriented x4, No motor or sensory deficit PSYCH: Normal mood and affect, no agitation Progress Results/Orders Results/Orders Orders - NAHEED CARTER MD Urinalysis, Cult If Indicated (11/08/24 14:54) Cbc/Diff (11/08/24 14:54) Lipase (11/08/24 14:54) CMP (11/08/24 14:54) Vital Signs 11/08/24 14:46 Temp 97.8 Pulse 60 Resp 18 B/P (MAP) 119/74 Pulse Ox 98 O2 Flow Rate 0 Medical Decision Making Findings Patient presents lower left quadrant pain secondary to probable diverticulitis. Abdominal exam without peritoneal signs, no very tender with palpation. No evidence of acute abdomen at this time. Well appearing. Patient with pelvic done with no CMT, adnexal tenderness, or vaginal discharge concerning for PID or TOA. Considered ovarian torsion but doubt given history and presentation. Given work up low suspicion for acute hepatobiliary disease (including acute cholecystitis), acute pancreatitis (neg lipase), PUD and gastric perforation, acute infectious processes (pneumonia, hepatitis, pyelonephritis), acute appendicitis, vascular catastrophe, bowel obstruction or viscus perforation. Presentation not consistent with other acute, emergent causes of abdominal pain at this time. Patient has an elevated white blood cell count of 19.1, was recently released from the the hospital last week and does not have the social support to care for herself during this illness at this time. With the patient's complicated history including leukemia recent hospital stay leukocytosis and social concerns, we will consult the hospitalist and requested admission. Differential Dx:Considerations: Include: AAA, -Complete, - Incomplete, -Inevitable, -Missed, -Threatened, Abruptio placentae, Angina/DC, Aortic dissection, Appendicitis, Bowel obstruction, Cholangitis, Cholelithasis, Constipation, Diverticular disease, Esophageal rupture, Esophagitis, Gastritis/PUD, Gastroenteritis, GI hemorrhage, Hernia, Hepatitis, Inflammatory BD, Ischemic bowel, Ovarian cyst/torsion, Pancreatitis, PID, Porphyria, Trauma, intraabdominal, Urinary obstruction, Urinary tract infection, Urolithiasis, Other Departure Disposition: 30 STILL A PATIENT Impression: Primary Impression: Abdominal pain Additional Instructions: Patient presents lower left quadrant pain secondary to probable diverticulitis. Abdominal exam without peritoneal signs, no very tender with palpation. No evidence of acute abdomen at this time. Well appearing. Patient with pelvic done with no CMT, adnexal tenderness, or vaginal discharge concerning for PID or TOA. Considered ovarian torsion but doubt given history and presentation. Given work up low suspicion for acute hepatobiliary disease (including acute cholecystitis), acute pancreatitis (neg lipase), PUD and gastric perforation, acute infectious processes (pneumonia, hepatitis, pyelonephritis), acute appendicitis, vascular catastrophe, bowel obstruction or viscus perforation. Presentation not consistent with other acute, emergent causes of abdominal pain at this time. Patient has an elevated white blood cell count of 19.1, was recently released from the the hospital last week and does not have the social support to care for herself during this illness at this time. We will consult the hospitalist and requested admission. Referrals: NO PRIMARY CARE PROVIDER (PCP) Education Educated: Patient Educated regarding: diagnosis, treatment, need for follow up NAHEED CARTER MD Nov 08, 2024 15:47 BRIAN PINO Nov 08, 2024 18:29
[2024-11-08 16:01] LABS: MEAN PLATELET VOLUME 7.5 FL (7.4-10.4); RED CELL DISTRIBUTION WIDTH 14.2 % (11.5-14.5)
[2024-11-08 16:15] LABS: CREATININE 0.86 MG/DL (0.40-0.90); TOTAL CARBON DIOXIDE 27.4 MMOL/L (24-32); eCRCL 54 ML/MIN; eGFR 64 ML/MIN
[2024-11-08 17:00] LABS: LEUKOCYTE ESTERASE ,URINE NEGATIVE (Neg); NITRITES, URINE NEGATIVE (Neg); OCCULT BLOOD,URINE NEGATIVE (Neg)
[2024-11-08 17:03] LABS: UA COLLECTION TYPE CLN CATCH MIDSTREAM
[2024-11-08] MEDS ORDERED: iohexol 300mg/ml 100ml inj. ONE (17:51)
[2024-11-08] MEDS: normal saline 500ml IV soln 500 ML IV SCH (18:23)
--- NOTE | 2024-11-08 20:02 | RADIOLOGY REPORT ---
EXAM: CT CT ABDOMEN PELVIS W/ IV CONTRAST HISTORY: Lower abdominal pian, elevated WBC TECHNIQUE: Volumetric multidetector CT images of the abdomen and pelvis were obtained after the administration of intravenous contrast. All CT scans at this facility use dose modulation, iterative reconstruction, and/or weight based dosing when appropriate to reduce radiation dose to as low as reasonably achievable. COMPARISON: CT CT ABDOMEN PELVIS W/ IV CONTRAST on DOS: 10/27/24 FINDINGS: [LOWER CHEST]: The partially visualized lung bases are clear without a pleural effusion. Coronary artery calcifications. [LIVER]: Normal hepatic size without suspicious focal lesion. [GALLBLADDER AND BILIARY TREE]: Surgically absent. [SPLEEN]: Unremarkable. [PANCREAS]: Unremarkable. [ADRENAL GLANDS]: Unremarkable [KIDNEYS]: No hydronephrosis. No nephroureterolithiasis. Cortical thinning of the right mid kidney likely compatible with prior insult. Benign-appearing cysts of the left medial kidney [BLADDER]: Unremarkable for the degree distention. [REPRODUCTIVE ORGANS]: Hysterectomy. [BOWEL/MESENTERY]: Stomach is normal. No CT evidence of bowel obstruction. [id number] sigmoid and descending colonic diverticulosis. Question inconspicuous low rectal wall thickening and in the appropriate clinical setting may represent trace proctitis. [ASCITES]: Absent [LYMPHADENOPATHY]: No pathologically enlarged lymph nodes by CT size criteria [VASCULATURE]: No aneurysmal dilatation. [ABDOMINAL WALL]: Small fat containing right inguinal hernia [MUSCULOSKELETAL]: No acute fracture or aggressive focal osseous lesion. Multifocal degenerative change of the visualized spine. IMPRESSION: 1. Question inconspicuous low rectal wall thickening and in the appropriate clinical setting may represent trace proctitis. 2. [id number] sigmoid and descending colonic diverticulosis. Correlate with clinical exam to exclude low-grade diverticulitis.
[2024-11-08] MEDS ORDERED: ALB0.5UD NEB (22:53)
[2024-11-08] MEDS ORDERED: ipratropium/albuterol 3ml nebule NEB PRN (22:55)
[2024-11-08] MEDS ORDERED: magnesium sulf-water 4G/100mL 100 ML IV PRN (22:55)
[2024-11-08] MEDS ORDERED: magnesium Cl slow-release 64mg tablet PO PRN (22:55)
[2024-11-08] MEDS ORDERED: potassium Cl 40MEQ/1/2NS 520ml 520 ML IV PRN (22:55)
[2024-11-08] MEDS ORDERED: HYDROcodone/acetaminophen 5mg/325mg tablet PO PRN (22:55)
[2024-11-08] MEDS ORDERED: potassium Cl 20 mEq SR tablet PO PRN ×2 (22:55)
[2024-11-08] MEDS: ciprofloxacin lact 400MG/200ML 200 ML IV SCH (22:55)
[2024-11-08] MEDS ORDERED: mag hydrox/Alum hydrox/simeth 30ml oral suspension PO PRN (22:55)
[2024-11-08] MEDS ORDERED: ondansetron/PF 4mg/2ml inj IV PRN (22:55)
[2024-11-08] MEDS ORDERED: magnesium hydroxide 30ml (MOM) UD suspension PO PRN (22:55)
[2024-11-08] MEDS ORDERED: magnesium sulf-water 2g/50mL 50 ML IV PRN (22:55)
--- NOTE | 2024-11-08 23:06 | ELECTROCARDIOGRAPH REPORT ---
[facility] Test Date: 2024-11-08 Test Time: 23:02:43 Pat Name: KAYLEN SALAZAR Department: [facility]-ER Patient ID: [facility]-[id number] Room: ED 12 Gender: F Customer Care Assistant: : 1945 Requested By: WES REECE Order Number: [id number] Reading MD: Measurements Intervals [place] Rate: 49 P: -24 [place]: 182 QRS: -12 QRSD: 115 T: 40 QT: 460 QTc: 416 Interpretive Statements Sinus bradycardia Nonspecific intraventricular conduction delay Borderline low voltage, extremity leads Please click the below link to view image of tracing.
--- NOTE | 2024-11-08 23:08 | HISTORY AND PHYSICAL-Residence ---
History & Physical Providers to CC Resident Creating Document: MARGARITA REECE, RES ~ History of Present Illness Reason for Admit\Complaint: Colitis History of Present Illness The patient is a 78-year-old female with past medical history of leukemia, COPD, presented to the ED complains of left lower abdominal pain as well as bilateral lower extremity pain. Patient is a poor historian. Patient was discharged on the 4th of this month after being treated for UTI and abdominal pain secondary to fecal impaction. She went home but continued to have lower abdominal pain and diarrhea. She gives all vague symptoms. She also complains of bilateral lower extremity pain which is more prominent on the right side and it extends from hip all the way to her feet. Also reports swelling in her bilateral lower extremities. Sometimes shooting type of pain is present. Reports incomplete voiding of her bladder and urinary incontinence. Denies fevers. Reports occasional shortness of breath for which she is supposed to use albuterol inhaler but she lost it. There is chest tightness associated with shortness of breath. Also reports dry cough. No palpitations. No nausea or vomiting. No burning micturition. No hematuria, isabela or hematochezia. Allergies: Coded Allergies: codeine (Verified Allergy, Unknown, 11/08/24) Home Medications Home Medications Active Pantoprazole Sodium 40 Mg Tablet.dr 40 Mg PO DAILY 30 Days Docusate Sodium 100 Mg Caps 1 Cap PO Q12H 30 Days Reported Proventil Nebs* (Albuterol) 2.5 Mg/0.5 Ml Vial.neb 1 Vial NEB Q4H 10 Days Past Medical History Past Medical History Leukemia, not on treatment COPD Past Surgical History Surgical History Comment Hysterectomy Family History Family History: Patient reports no known family medical history. Past Social History Social History Comment Lives in [place]. Does not have a PCP. Denies smoking, alcohol and other illicit drug abuse. Reported that she quit smoking this year. ROS ROS Constitutional: No fever, dizziness, weakness. no change in appetite/weight HEENT: No blurring of the vision, No sore throat, epistaxis, tinnitus Cardiovascular: No chest pain/discomfort, palpitations, syncope. Reports bilateral lower extremity edema Respiratory: Reports sob, cough, no hemoptysis Gastrointestinal: Reports abdominal pain, nausea, diarrhea, no vomiting, constipation, melena. Genitourinary: Reports urinary incontinence, No frquency, urgency, nocturia. No dysuria, hematuria Musculoskeletal: Reports bilateral lower extremity aches Endocrine: No fatigue, polydipsia, polyuria. No heat or cold intolerance Neurologic: No headache, vertigo. No weakness, numbness or tingling of extremities Psychiatric: No hallucinations/delusions, no anhedonia, no suicidal ideation Hematologic: No bleeding or bruises Exam Vitals: Vital Signs Date Time Temp Pulse Resp B/P (MAP) Pulse Ox O2 Delivery O2 Flow Rate FiO2 11/08/24 21:45 14 11/08/24 19:27 55 99 11/08/24 14:46 97.8 0 General: Elderly female, awake and alert, not in acute distress Head: Normocephalic with an atraumatic Eyes: Pupils- 3mm, reacting to light, conjunctiva- anicteric Nose and throat: No polyps, septum- normal, no mucosal ulcers, dry mucosal membranes Neck: Supple, no lymphadenopathy, no carotid bruit Respiratory: No use of accessory muscles of respiration, Bilateral normal vesiscular breath sounds heard. No wheeze, rhochi or creps Cardiac: S1-S2 heard, rhythm regular, no gallop/murmur Abdomen: non distended, tenderness in LLQ and RUQ, no organomegaly, bowel sounds - heard Extremities: Onychomycosis of bilateral feet, bilateral nonpitting edema extending up to knees no pedal edema, tenderness present, peripheral pulses - 2+ Skin: warm and dry, no rash, no purpura Neuro: No focal deficit, gross cranial nerve exam - normal Diagnostic Data Last Recorded Lab Results: 11/08/24 1540 11/08/24 1540 Advance Care Planning Advanced Care plannin - 30 Minutes (Full code) Additional Plan Patient is a 78-year-old female with past medical history of COPD, leukemia, presented to the ED with complaints of continued abdominal pain and diarrhea. He is being admitted into the hospital for further evaluation and management. Plan: Left lower quadrant abdominal pain Possible bacterial colitis Possible proctitis Diverticulosis CT abdomen showed ? Inconspicuous low rectal wall thickening and in appropriate clinical setting may represent trace proctitis. There is also [id number] sigmoid and descending colonic diverticulosis. No report of blood in stool. There is leukocytosis 19.1, no neutrophilia. She has a history of leukemia. Follow up with procalcitonin, ESR and lactic acid. Elevated total bilirubin 1.5. Repeat tomorrow. History of cholecystectomy present. Started the patient on IV metronidazole 500 mg q.8h and IV ciprofloxacin 400 mg q.12h. Also started the patient on probiotics. Bilateral lower extremity pain, right > left Possible peripheral neuropathy Rule out DVT Patient has bilateral lower extremity swelling extending up to knees, and tenderness. With history of leukemia, swelling and tenderness, venous ultrasound of bilateral lower extremities ordered. Follow up to rule out DVT. Consider MRI lumbar spine with a background of urinary incontinence, bilateral lower extremity pain. Sensations to fine touch absent in bilateral feet. Trial of gabapentin. COPD, not in acute exacerbation No wheezing. Not on oxygen. Continue ipratropium/albuterol nebulizations q.4h PRN. Leukemia Not on treatment. WBC 19.1. Continue to monitor. Urinary incontinence Consider oxybutynin at discharge. Code Status: Full code DVT Prophylaxis: Heparin subcutaneous Analgesia/Sedation: Morphine, [place] Lines/Tubes: PIV GI Prophylaxis: Protonix Nutrition: Regular diet PT: Ordered Prognosis: Guarded Disposition: We will admit the patient [facility]. Continue IV antibiotics. Margarita Reece MD Internal Medicine Resident PGY-2 agree with care and plan admit to medicine Date of Service: Nov 08, 2024 Billing Provider: YUKO ESCOBAR MD, SOWMYA MANJARI, RES Nov 08, 2024 23:08 YUKO ESCOBAR MD Nov 09, 2024 00:32
[2024-11-08] MEDS: metroNIDAZOLE-Flagyl 500mg/NS 100 ML IV SCH (23:16)
[2024-11-08 23:22] LABS: PRO BRAIN NATRIURETIC PEPTIDE 270 PG/ML (0-450)
[2024-11-08 23:35] LABS: INR 1.1 INR
[2024-11-08 23:37] VITALS: PULSE 60; RESP 16; O2SAT 99
[2024-11-08] MEDS: ciprofloxacin lact 400MG/200ML 200 ML IV ONE (23:57)
[2024-11-09] VITALS (13 sets, daily range): BP systolic 105–123; BP diastolic 35–89; PULSE 41–57; RESP 14–20; TEMP 97.5–98.8; O2SAT 98–100
[2024-11-09] MEDS: ringers solution, lacted 1,000 ML IV SCH (00:06)
[2024-11-09] MEDS: pantoprazole 40mg Tablet.DR PO SCH (00:06)
[2024-11-09 00:54] LABS: RED CELL DISTRIBUTION WIDTH 14.3 % (11.5-14.5)
[2024-11-09 00:55] LABS: MEAN PLATELET VOLUME 7.7 FL (7.4-10.4)
[2024-11-09 01:09] LABS: CREATININE 0.63 MG/DL (0.40-0.90); TOTAL CARBON DIOXIDE 27.6 MMOL/L (24-32); eCRCL 74 ML/MIN; eGFR > 90 ML/MIN
[2024-11-09 01:21] LABS: LYMPHOCYTES % (MANUAL) 74.0 % (21-51); MONOCYTES % (MANUAL) 2.0 % (2-12); NEUTROPHILS % (MANUAL) 24.0 % (42-75); PLATELET ESTIMATE DECREASED
[2024-11-09] MEDS: K and/or MAG REPLACEMENT MC SCH (07:58)
[2024-11-09] MEDS: lactobacillus rhamnosus 10,000 MMU CELLS/CAPSULE PO SCH (08:07)
[2024-11-09] MEDS: heparin, porcine 5000 units/ml vial SQ SCH (08:08)
[2024-11-09] MEDS: docusate sod 100mg capsule PO SCH (08:09)
--- NOTE | 2024-11-09 09:05 | VASCULAR REPORT ---
Bilateral lower extremity venous Doppler INDICATION: Pain and swelling TECHNIQUE: Duplex venous sonography was performed with real-time and flow sensitive images submitted for evaluation. FINDINGS: Normal phasic venous flow. Veins are fully compressible. No filling defects. IMPRESSION: 1. No evidence of deep vein thrombosis.
[2024-11-09] MEDS: normal saline 500ml IV soln 500 ML IV ONE (09:30)
[2024-11-09] MEDS: albuterol 2.5 MG/3 ML nebule NEB SCH (11:30)
--- NOTE | 2024-11-09 14:40 | PROGRESS NOTE- Residence ---
Progress Note - Resident Providers to CC Resident Creating Document: OKPARTH RAND ~ Antibiotic Timeout Antibiotic Ordered?: Yes Subjective She was complaining about the pain at the suprapubic area and painful swelling over bilateral leg especially worse on the right side which disencouraged her to walk around. She has been starting all of her symptoms including tail bone pain with the shooting down pain over bilateral legs since 4 months back and reported for the urinary and bowel control power, but denied for any abnormal sensations like tingling and numbness over her extremeties and private areas. Did not report for any traumatic history including falling on her bottom recently or before the symptoms started. She denied for any evening night sweating, painful spinal pain woke her up at the middle of the night and any dramatically changes in the weight. She endorsed that she could not recall where she got the treatment and seen by a suede brusher for her leukemia but somewhere in the [place]. She denied for any active induction and maintenance therapies for her leukemia before. Objective Vital Signs Date Time Temp Pulse Resp B/P (MAP) Pulse Ox O2 Delivery O2 Flow Rate FiO2 11/09/24 11:36 48 18 Room Air 0.0 11/09/24 11:31 98 21 11/09/24 10:30 97.8 123/62 (82) Result Diagram: 11/09/247 11/09/24 004 Patient was seen at the bedside this morning. Vitals were stable at the moment with temp 97.8 F, FL 41/minute, RR 70/minute, BP 123/62 mm Hg, pulse oximetry 99% on room air. On exam, General: Well alert, well oriented, not confused, not agitated, not in acute distress, well cooperated during the physical. HEENT: Conjunctive are pink, sclerae clear, no icterus, pupil is equal in both sides, reactive to light, no ear discharge, no pharyngeal erythema or an edema, mouth and lips are moist. Neck: Supple, no JVD, no lymphadenopathy and thyromegaly. Lungs:Equal air entry on both lungs, no additional sounds Heart: S1-S2 regular sinus rhythm and, regular rate, no gallops, no rubs, no murmurs Abdomen: No visible peristalsis, Bowel sounds present on auscultation, soft, nontender generaly but tender at SPA on touch, no guarding, no rigidity Extremities: No obvious deformities, no pitting edema bilaterally, capillary refill intact, able to wiggle toes both sides, peripheral pulsations are intact on both sides HEAVY REPAIRER: No focal neurological deficits, no motor (Tone and power) and sensory weakness in all 4 extremities, could move all 4 extremities DTR bilateral Knee-2+, and did not allow to test for Extenosr plantar response. Musculoskeletal: No joint swelling, deformities, inflammations, and no scoliosis and back tenderness Skin: No active skin lesions and rashes Coagulation Studies Laboratory Tests Test 11/08/24 23:09 Prothrombin Time 10.8 SECONDS (9.0-12.0) INR International Normalized Ratio 1.1 INR Coagulation Comments Assessment Assessment A 69 years old female with a past medical history of stable chronic nonspecific leukemia, COPD, GERD, history of hospitalization for UTI and stool impaction, s/p hysterectomy presented to ER for progressive abdominal pain and diarrhea who was admitted to the hospital for further evaluation and management. Plan Plan # Left lower quadrant abdominal pain # Possible bacterial colitis # Proctitis # Diverticulosis CT abdomen w/ IV Contrast showed Question inconspicuous low rectal wall thickening and in the appropriate clinical setting may represent trace proctitis. [id number] sigmoid and descending colonic diverticulosis. Correlate with clinical exam to exclude low-grade diverticulitis. No report of blood in stool. There is leukocytosis 19.1, no neutrophilia. She has a history of leukemia. Follow up with procalcitonin, ESR and lactic acid. Elevated total bilirubin 1.5. Repeat tomorrow. History of cholecystectomy present. Started the patient on IV metronidazole 500 mg q.8h and IV ciprofloxacin 400 mg q.12h. Also started the patient on probiotics. 11/09/2024: Procalcitonin and ESR, lactic acid are within normal -trending down bilirubin -continue IV ciprofloxacin and metronidazole-D2, and probiotics -improved on her LBM # Bilateral lower extremity pain, right > left # Possible peripheral neuropathy # Rule out DVT Patient has bilateral lower extremity swelling extending up to knees, and tenderness. With history of leukemia, swelling and tenderness, venous ultrasound of bilateral lower extremities ordered. Follow up to rule out DVT. Consider MRI lumbar spine with a background of urinary incontinence, bilateral lower extremity pain. Sensations to fine touch absent in bilateral feet. Trial of gabapentin. 11/09/24: No evidence of DVT on the Vascular USG bialteral leg -no FND and any other neurological changes at the LE, will consider MRI lumbosacral spine if there will be any new neurological changes. # COPD, not in acute exacerbation No wheezing. Not on oxygen. Continue ipratropium/albuterol nebulizations q.4h PRN. # stable chronic non specific Leukemia # Hyperchromic macrocytic anemia Not on treatment. WBC 19.1. Continue to monitor. 11/09/24: pt did not provide any specific leukemia and its treatment -recommend to follow up with the PCP and Hematology in the outpatient setting. -ordered B12 level, and started oral B12 and Folic acid in the setting of HHM and Leukemia # Urinary incontinence Consider oxybutynin at discharge. # Mild protein calorie malnutrition encourage for the protein intake in the daily diet Code Status: Full code DVT Prophylaxis: Heparin subcutaneous Analgesia/Sedation: Morphine, [place] Lines/Tubes: PIV GI Prophylaxis: Protonix Nutrition: Regular diet PT: Ordered Prognosis: Guarded Disposition: Continue medical treatment IV antibiotics, pain control, PT eval and DC plan Resident MD attestation: Patient was seen, examined and discussed with attending MD, Dr. Ilir EUCEDA MD Internal Medicine Resident, PGY3 [facility] Date of Service: Nov 09, 2024 Billing Provider: JEROME ZHOU MD Common Visit Codes: [id number] INP/OBS CARE(HIGH) KEYONA EUCEDA, PARTH Nov 09, 2024 14:40 JEROME ZHOU MD Nov 10, 2024 14:24
[2024-11-09] MEDS: cyanocobalamin 500mcg tablet PO SCH (16:55)
[2024-11-09] MEDS: HYDROcodone/acetaminophen 10/325mg tab PO PRN (20:06)
[2024-11-10] VITALS (8 sets, daily range): BP systolic 96–110; BP diastolic 35–50; PULSE 52–60; RESP 16–17; TEMP 98.3–98.4; O2SAT 96–99
[2024-11-10 05:51] LABS: MEAN PLATELET VOLUME 8.0 FL (7.4-10.4); RED CELL DISTRIBUTION WIDTH 14.3 % (11.5-14.5)
[2024-11-10 06:16] LABS: CREATININE 0.94 MG/DL (0.40-0.90); TOTAL CARBON DIOXIDE 25.3 MMOL/L (24-32); eCRCL 50 ML/MIN; eGFR 58 ML/MIN
[2024-11-10] MEDS ORDERED: CIPR-20 PO (13:04)
[2024-11-10] MEDS ORDERED: METR-159 PO (13:04)
[2024-11-10] MEDS ORDERED: LACT1CAP26 PO (13:04)
[2024-11-10] MEDS ORDERED: HYDR-3965 PO (14:20)
--- NOTE | 2024-11-10 17:06 | DISCHARGE SUMMARY-Residence ---
Discharge Summary Providers to CC Resident Creating Document: KEYONA EUCEDA RES ~ Discharge Summary Admission Diagnosis: COLITIS Hospital Course DATE OF ADMISSION: 11/08/2024 DATE OF DISCHARGE: 11/10/2024 Discharge Diagnosis\Comment: # Left lower quadrant abdominal pain # Possible bacterial colitis # Proctitis # Diverticulosis # Bilateral lower extremity pain, right > left, Excluded out DVT # Possible peripheral neuropathy # COPD, not in acute exacerbation # stable chronic non specific Leukemia # Hyperchromic macrocytic anemia # Urinary incontinence # Mild protein calorie malnutrition Operations\Procedures: None Consultants: None Complications: None Condition on DC: Stable New Medications: Ciprofloxacin/Ciprofloxa Hcl (Ciprofloxacin Er 500 Mg Tablet) 500 Mg Tbmp.24hr 1 TAB PO Q12H for 7 Days, #14 TAB Hydrocodone Bit/Acetaminophen 5/325 MG ([place] 5/325 MG) 5 Mg/325 Mg Tablet 1 TAB PO Q6H PRN for pain, #14 TAB Lactobacillus Rhamnosus (Culturelle) 10 Billion Cell Capsule 1 CAP PO DAILY for 15 Days, #15 CAP 0 Refills Metronidazole* (Flagyl*) 500 Mg Tablet 1 TAB PO BID for 7 Days, #14 TAB Continued Medications: Albuterol Sulfate Nebs* (Proventil Nebs*) 2.5 Mg/0.5 Ml Vial.neb 1 VIAL NEB Q4H for shortness of breath for 10 Days, #30 ML Docusate Sodium (Docusate Sodium) 100 Mg Caps 1 CAP PO Q12H for constipation for 30 Days, #60 CAP 0 Refills Pantoprazole Sodium (Pantoprazole Sodium) 40 Mg Tablet.dr 40 MG PO DAILY for 30 Days, #30 TAB.SR Discharge Summary: A 69 years old female with a past medical history of stable chronic nonspecific leukemia, COPD, GERD, history of hospitalization for UTI and stool impaction, s/p hysterectomy and s/p cholecystectomy presented to ER for progressive abdominal pain and diarrhea who was admitted to the hospital for further evaluation and management. Hospital course: Patient was admitted for her acute lower abdominal pain with no reportable blood in stool. for further management plan. CT abdomen w/ IV Contrast showed Question inconspicuous low rectal wall thickening and in the appropriate clinical setting may represent trace proctitis. [id number] sigmoid and descending colonic diverticulosis. Correlate with clinical exam to exclude low- grade diverticulitis. Procalcitonin and ESR, lactic acid are within normal. She was started on IV ciprofloxacin and metronidazole with probiotics for total 3 days courses during her stay. She showed some improvement on the LBM during hospitalization. No evidence of DVT on the Vascular USG bialteral leg. No new FND and other neurological changes were detected which demanded for MRI Lumbo- sacral spine. We continued ipratropium/albuterol nebulizations q.4h PRN. For her peripheral neuropathy and pain with bowel and bladder incontinence, her Vitamin B12 level was pending but we replaced her with Vitamin B12 and Folic acid during hospitalization and her TSH found to have elevation. All of her home medications were reconciled and review and continue appropriately during her hospitalization. DVT prophylaxis was achieved with subcutaneous heparin 5000 units b.i.d. and pain was controlled with the [place] and morphine as needed and GI prophylaxis was done with the Protonix. Today, she is ready to be discharged back to her original place. All of her questions and concerns were addressed with the best knowledge of our team before she was discharged. All of her labs were within normal limits as mentioned below. All of her vitals were stable at the moment with temp 98.4 F, NE 60/minute, RR 70/minute, BP 110/50 mm Hg, pulse oximetry 96% on room air. On exam, General: Well alert, well oriented, not confused, not agitated, not in acute distress, well cooperated during the physical. HEENT: Conjunctive are pink, sclerae clear, no icterus, pupil is equal in both sides, reactive to light, no ear discharge, no pharyngeal erythema or an edema, mouth and lips are moist. Neck: Supple, no JVD, no lymphadenopathy and thyromegaly. Lungs:Equal air entry on both lungs, no additional sounds Heart: S1-S2 regular sinus rhythm and, regular rate, no gallops, no rubs, no murmurs Abdomen: No visible peristalsis, Bowel sounds present on auscultation, soft, nontender generaly but tender at SPA on touch, no guarding, no rigidity Extremities: No obvious deformities, no pitting edema bilaterally, capillary refill intact, able to wiggle toes both sides, peripheral pulsations are intact on both sides MATERIALS DEVELOPMENT ENGINEER: No focal neurological deficits, no motor (Tone and power) and sensory weakness in all 4 extremities, could move all 4 extremities DTR bilateral Knee-2+, and did not allow to test for Extenosr plantar response. Musculoskeletal: No joint swelling, deformities, inflammations, and no scoliosis and back tenderness Skin: No active skin lesions and rashes Laboratory Tests Test 11/08/24 23:09 11/09/24 00:47 11/10/24 04:15 Prothrombin Time 10.8 SECONDS INR International Normalized Ratio 1.1 INR Coagulation Comments White Blood Count 14.2 X10'3 9.6 X10'3 Red Blood Count 2.86 X10'6 2.88 X10'6 Hemoglobin 9.6 g/dl 9.9 g/dl Hematocrit 28.3 % 28.7 % Mean Corpuscular Volume 99.0 FL 99.5 FL Mean Corpuscular Hemoglobin 33.5 PG 34.2 PG Mean Corpuscular Hemoglobin Concent 33.8 g/dL 34.4 g/dL Red Cell Distribution Width 14.3 % 14.3 % Platelet Count 129 X10'3 121 X10'3 Mean Platelet Volume 7.7 FL 8.0 FL Neutrophils (%) (Auto) 22.0 % 23.0 % Lymphocytes (%) (Auto) 75.1 % 74.2 % Monocytes (%) (Auto) 1.9 % 1.8 % Eosinophils (%) (Auto) 0.8 % 0.7 % Basophils (%) (Auto) 0.2 % 0.3 % Neutrophils # (Auto) 3.1 X10'3 2.2 X10'3 Lymphocytes # (Auto) 10.7 X10'3 7.1 X10'3 Monocytes # (Auto) 0.3 X10'3 0.2 X10'3 Eosinophils # (Auto) 0.1 X10'3 0.1 X10'3 Basophils # (Auto) 0.0 X10'3 0.0 X10'3 CBC Comment Differential Total Cells Counted 100 Neutrophils % (Manual) 24.0 % Lymphocytes % (Manual) 74.0 % Monocytes % (Manual) 2.0 % Platelet Estimate Decreased Red Blood Cell Morphology Perf Basophilic Stippling Anisocytosis Macrocytosis 1+ Erythrocyte Sedimentation Rate 6 MM/HR Sodium Level 143 MMOL/L 145 MMOL/L Potassium Level 3.8 MMOL/L 3.5 MMOL/L Chloride Level 112 MMOL/L 111 MMOL/L Carbon Dioxide Level 27.6 MMOL/L 25.3 MMOL/L Anion Gap 3 9 Blood Urea Nitrogen 17 MG/DL 16 MG/DL Creatinine 0.63 MG/DL 0.94 MG/DL Estimated GFR/1.73 m2 > 90 ML/MIN 58 ML/MIN BUN/Creatinine Ratio 27.0 17.0 Glucose Level 128 MG/DL 105 MG/DL Calcium Level 8.4 MG/DL 8.4 MG/DL Magnesium Level 2.2 MG/DL 2.0 MG/DL Total Bilirubin 1.1 MG/DL 1.2 MG/DL Aspartate Amino Transf (AST/SGOT) 19 U/L 19 U/L Alanine Aminotransferase (ALT/SGPT) 11 U/L 10 U/L Alkaline Phosphatase 71 IU/L 63 IU/L Total Protein 5.6 G/DL 6.0 G/DL Albumin 3.1 G/DL 3.1 G/DL Globulin 2.5 G/DL 2.9 G/DL Albumin/Globulin Ratio 1.2 1.1 Chemistry Comments Thyroid Stimulating Hormone (TSH) 6.64 ulU/ml Discharge instructions: -immediate return to the ER for any emergent situation including progressive severe abdominal pain, uncontrolled diarrhea more than 4 times a day, etc -follow up with the PCP and pain clinic for further management including pain control and prescription medications refill -encourage physical therapy and exercises on daily basic -encourage control the demanding of pain medications -heart healthy diet -optimal hydration is recommended -complete the full course of ABx to prevent drug resistant -recheck TSH and free T4 at the outpatient for the any necessary Throid hormone replacement. -follow up with the vitamin B12 level and continue taking vitamin B12 and folic acid in outpatient setting. Resident MD attestation: Patient was seen, examined and discussed with attending MD, Dr. Ilir EUCEDA MD Internal Medicine Resident, PGY3 [facility] *Problems/Diagnosis: (1) Abdominal pain Status: Resolved Total Time Spent on D/C: > 30 Minutes Date of Service: Nov 10, 2024 Billing Provider: JEROME ZHOU MD, TIN, RES Nov 10, 2024 17:04
== END 2024-11-10 14:34 | disposition home or self-care (01) | DRG 248 ==
LOC: ER 14:45 → ED HOLD 22:56 → SUR 3N 11-09 07:26
PROVIDERS: ADMIT Internal Medicine; ATTEND Internal Medicine
PROC: BW211ZZ Computerized Tomography (CT Scan) of Abdomen and Pelvis using Low Osmolar Contrast (ICD-10-PCS; principal; 2024-11-08)
DX: A04.9 Bacterial intestinal infection, unspecified (principal); E44.1 Mild protein-calorie malnutrition; J44.9 Chronic obstructive pulmonary disease, unspecified; D53.9 Nutritional anemia, unspecified; Z68.34 Body mass index [BMI] 34.0-34.9, adult; K62.89 Other specified diseases of anus and rectum; K57.30 Diverticulosis of large intestine without perforation or abscess without bleeding; G62.9 Polyneuropathy, unspecified; K21.9 Gastro-esophageal reflux disease without esophagitis; R32 Unspecified urinary incontinence; Z85.6 Personal history of leukemia
CPT/HCPCS: 36415; 74177; 80053; 81003; 82607; 83605; 83690; 83735; 83880; 84145; 84443; 84484; 85007; 85025; 85610; 85651; 87081; 93005; 93970; 94640; 94760; 96360; 97116; 97161; 97530; 99285; A6258; G0378; J0744; J1644; J2270; J3490; J7040; J7120; Q9967

== ENCOUNTER 2024-11-16 19:29 | Emergency (ER) | payer MEDICAID ==
[~2024-11-16] VITALS: Ht 162.6 cm; Wt 89.0 kg
[~2024-11-16 19:29] MED LIST changes: -ACET-812 PO; +ALB0.5UD NEB; +CIPR-20 PO; +HYDR-3965 PO; +LACT1CAP26 PO; +METR-159 PO
[2024-11-16 20:09] LABS: MEAN PLATELET VOLUME 7.6 FL (7.4-10.4)
[2024-11-16 20:11] LABS: RED CELL DISTRIBUTION WIDTH 14.3 % (11.5-14.5)
[2024-11-16 20:23] LABS: CREATININE 0.78 MG/DL (0.40-0.90); TOTAL CARBON DIOXIDE 28.7 MMOL/L (24-32); eCRCL 52 ML/MIN; eGFR 72 ML/MIN
[2024-11-16 20:41] LABS: EOSINOPHILS % (MANUAL) 2.0 % (0-6); LYMPHOCYTES % (MANUAL) 70.0 % (21-51); MONOCYTES % (MANUAL) 3.0 % (2-12); NEUTROPHILS % (MANUAL) 25.0 % (42-75); PLATELET ESTIMATE NORMAL
[2024-11-16 21:09] LABS: LEUKOCYTE ESTERASE ,URINE TRACE (Neg); NITRITES, URINE NEGATIVE (Neg); OCCULT BLOOD,URINE TRACE-INTACT (Neg)
[2024-11-16 21:12] LABS: UA COLLECTION TYPE CLN CATCH MIDSTREAM
[2024-11-16 21:16] LABS: MUCUS STRANDS FEW /LPF (Neg); SQUAMOUS EPITHELIAL CELL,UR FEW /LPF (FEW)
[2024-11-17 00:12] VITALS: TEMP 98.1
--- NOTE | 2024-11-17 00:29 | Physician Documentation ---
History of Present Illness General Chief Complaint: Abdominal Pain Stated Complaint: ABD PAIN Time Seen by MD: 00:16 Primary Medical Doctor: JUAN CARLOS Mode of Arrival: EMS History of Present Illness Initial Comments The patient is a 79-year-old female who is complaining of continued abdominal pain that she has had for several weeks. Patient states that she has had lower abdominal pain she was admitted for this and treated for a colitis with the antibiotics and discharged. The patient states she has also been weaker at home and has been falling. She states she felt today and she has states she fell once earlier in the week. The patient denies any fevers or chills. She states the pain is intermittent and in her lower abdomen. Patient denies any urinary symptoms. Patient is requesting a wheelchair and an note this does she can stay inside at the [facility] and keep her legs elevated. Medication Reconciliation Allergies: Coded Allergies: codeine (Verified Allergy, Unknown, 11/08/24) Scheduled Albuterol Sulfate Nebs* (Proventil Nebs*), 1 VIAL NEB Q4H, (Reported) Amox Tr/Potassium Clavulanate 875/125 MG (Augmentin 875/125 MG), 1 TAB PO BID Docusate Sodium (Docusate Sodium), 1 CAP PO Q12H Lactobacillus Rhamnosus (Culturelle), 1 CAP PO DAILY Pantoprazole Sodium (Pantoprazole Sodium), 40 MG PO DAILY Scheduled PRN Hydrocodone Bit/Acetaminophen 5/325 MG ([place] 5/325 MG), 1 TAB PO Q6H PRN for pain Discontinued Medications Ciprofloxacin/Ciprofloxa Hcl (Ciprofloxacin Er 500 Mg Tablet), 1 TAB PO Q12H Discontinued Reason: Auto Discontinued Metronidazole* (Flagyl*), 1 TAB PO BID Discontinued Reason: Auto Discontinued Past Medical History Past Medical History: Leukemia Review of Systems All Other Systems at this time: Reviewed and Negative Physical Exam Physical Exam Vital Signs: Temperature: 98.1, Heart Rate: 58, Respiratory Rate: 16, BP: 13 6/63, Pulse Oximetry: 100, Weight: 89.000 Oxygen Flow Rate: 0 Physical Exam VITALS: Reviewed and as above. GENERAL: Alert, no apparent distress. HEENT: Normocephalic, atraumatic, PERRL, EOMI, dry mucosa, no erythema RESPIRATORY: Lungs clear, normal breath sounds, no respiratory distress. CHEST: No accessory muscle use, no retractions CV: Regular rate, rhythm, trace edema nonpitting, no murmur, No: JVD GI: Soft, slight lower abdominal tenderness, bowels sounds present, no rebound, guarding, or rigidity BACK: No CVA tenderness, or swelling MUSCULOSKELETAL: No deformities, trace edema nonpitting SKIN: Warm and dry, no rash NEURO: Oriented x4, No motor or sensory deficit PSYCH: Normal mood and affect, no agitation Progress Results/Orders Results/Orders Completed Orders - LESTER LAMAS MD Cbc/Diff (11/16/24 19:41) Lipase (11/16/24 19:41) CMP (11/16/24 19:41) Man Diff (11/16/24 19:51) Ua W/Microscopic, Cult If Ind (11/16/24 20:01) Cult Urine + [address] (11/16/24 21:17) Procalcitonin (11/17/24 00:30) Vital Signs 11/16/24 11/17/24 11/17/24 11/17/24 19:56 00:12 00:13 01:03 Temp 98.1 98.1 Pulse 65 58 48 Resp 16 16 17 B/P (MAP) 139/66 136/63 (87) 118/52 (74) Pulse Ox 98 100 97 O2 Flow Rate 0 0 11/17/24 11/17/24 11/17/24 01:03 01:55 01:55 Pulse 52 57 Resp 13 13 B/P (MAP) 100/47 (64) 100/47 Pulse Ox 98 98 Laboratory Tests Test 11/16/24 19:51 11/16/24 20:01 White Blood Count 18.1 H Red Blood Count 3.32 L Hemoglobin 11.2 L Hematocrit 32.8 L Mean Corpuscular Volume 98.8 H Mean Corpuscular Hemoglobin 33.8 H Mean Corpuscular Hemoglobin Concent 34.2 Red Cell Distribution Width 14.3 Platelet Count 169 Mean Platelet Volume 7.6 Neutrophils (%) (Auto) 23.2 L Lymphocytes (%) (Auto) 73.4 H Monocytes (%) (Auto) 2.4 Eosinophils (%) (Auto) 0.7 Basophils (%) (Auto) 0.3 Neutrophils # (Auto) 4.2 Lymphocytes # (Auto) 13.3 H Monocytes # (Auto) 0.4 Eosinophils # (Auto) 0.1 Basophils # (Auto) 0.1 CBC Comment Differential Total Cells Counted 100 Neutrophils % (Manual) 25.0 L Lymphocytes % (Manual) 70.0 H Monocytes % (Manual) 3.0 Eosinophils % (Manual) 2.0 Platelet Estimate Normal Red Blood Cell Morphology Perf Basophilic Stippling Anisocytosis 1+ Macrocytosis 1+ Sodium Level 142 Potassium Level 3.8 Chloride Level 107 Carbon Dioxide Level 28.7 Anion Gap 6 L Blood Urea Nitrogen 24 H Creatinine 0.78 Estimated GFR/1.73 m2 72 BUN/Creatinine Ratio 30.8 H Glucose Level 114 H Calcium Level 9.1 Total Bilirubin 1.7 H Aspartate Amino Transf (AST/SGOT) 32 Alanine Aminotransferase (ALT/SGPT) 43 Alkaline Phosphatase 87 Total Protein 7.1 Albumin 3.9 Globulin 3.2 Albumin/Globulin Ratio 1.2 Lipase 35 Procalcitonin < 0.05 Chemistry Comments Urine Specimen Description Cln catch midstream Urine Color Yellow Urine Clarity Clear Urine pH 5.0 Urine Specific [place] >=1.030 Urine Protein Trace Urine Glucose (UA) Negative Urine Ketones Negative Urine Occult Blood Trace-intact Urine Nitrite Negative Urine Bilirubin Moderate Urine Urobilinogen 0.2 Urine Leukocyte Esterase Trace H Urine RBC 0-2 Urine WBC 0-4 Urine Squamous Epithelial Cells Few Urine Bacteria 4+ Urine Mucus Few Urine Culture Indicated Indicated Volume Urine Centrifuged 10 ml Urine Comment Microbiology Date/Time Source Procedure Growth Status 11/16/24 21:17 Urine Clean Catch Midstream Urine Culture - Final Lactobacillus Sp Complete Medical Decision Making Findings The patient complains of continued abdominal pain similar to the abdominal pain she had when she was in the hospital within the last two weeks. The patient does appear to have a urinary tract infection. She is hemodynamically stable with a benign exam the patient will be treated with the continuation of her antibiotics for colitis as well as antibiotics to cover for a urinary tract infe ction. Prior hospitalizations were reviewed. The patient's pulse oximetry was interpreted as normal and adequate. Her forge tender was interpreted as a sinus rhythm the patient will be discharged Departure Impression: Primary Impression: Acute UTI (urinary tract infection) Discharge Instructions: Urinary Tract Infection, Adult Additional Instructions: Use the Augmentin twice daily for the next 10 days. Return for worsening of your symptoms. Follow up with the healthcare providers soon as possible Departure Forms: Excuse form Work or School Excused From: Work Excuse beginning now through the following date: Nov 24, 2024 May Return but still avoid physical Activity from now until: Nov 24, 2024 May Return to full physical activity as of: Nov 24, 2024 Additional Instructions: Please allow the patient to stay indoors during the day for the next week. And allow her to elevate her legs. Through 11/24/24 Referrals: NO PRIMARY CARE PROVIDER (PCP) Prescriptions Amox Tr/Potassium Clavulanate 875/125 MG (Augmentin 875/125 MG) 875 Mg-125 Mg Tablet 1 TAB PO BID, #20 TAB Prov: LESTER LAMAS MD 11/17/24 Signature Scribe Signature: no scribe Attestation: The note accurately reflects work and decisions made by me.Lester Lamas MD 11/19/24 09:53 LESTER LAMAS MD Nov 17, 2024 00:29
[2024-11-17] MEDS ORDERED: AMOX-580 PO (01:29)
[2024-11-17 01:55] VITALS: BP 100/47; PULSE 57; RESP 13; O2SAT 98
== END 2024-11-17 02:15 | disposition home or self-care (01) ==
LOC: ER 19:29
DX: N39.0 Urinary tract infection, site not specified (principal); Z88.5 Allergy status to narcotic agent
CPT/HCPCS: 36415; 80053; 81001; 83690; 84145; 85007; 85025; 87088; 99283

== ENCOUNTER 2024-12-26 09:04 | Emergency (ER) | payer MEDICAID ==
[~2024-12-26] VITALS: Ht 162.6 cm; Wt 80.6 kg
[~2024-12-26 09:04] MED LIST changes: -CIPR-20 PO; -HYDR-3965 PO; -METR-159 PO
[2024-12-26 09:05] VITALS: PULSE 57; RESP 16; TEMP 98.4; O2SAT 100
--- NOTE | 2024-12-26 09:30 | Physician Documentation ---
History of Present Illness ~ Chief Complaint: Back Pain Stated Complaint: BACK PAIN Time Seen by MD: 09:16 Primary Medical Doctor: [facility] Source: patient Mode of Arrival: EMS Exam Limitations: no limitations HPI 79-year-old female brought in by EMS for sudden onset lower back pain this morning. Difficulty with movement and called EMS. Patient denies any falls or triggering events. Medication Reconciliation Allergies: Coded Allergies: codeine (Verified Allergy, Unknown, 12/26/24) Scheduled Albuterol Sulfate Nebs* (Proventil Nebs*), 1 VIAL NEB Q4H, (Reported) Docusate Sodium (Docusate Sodium), 1 CAP PO Q12H Lactobacillus Rhamnosus (Culturelle), 1 CAP PO DAILY Pantoprazole Sodium (Pantoprazole Sodium), 40 MG PO DAILY Past Medical History Past Medical History: Leukemia Past Surgical History: noncontributory Patient History: Patient reports no known family medical history. Lives In: Home Occupation: retired Review of Systems All Other Systems at this time: Reviewed and Negative Musculoskeletal: Reports: see HPI Physical Exam Physical Exam Vital Signs: RN Vital Signs have been reviewed: Yes, Temperature: 98.4, Source: Oral, Heart Rate: 57, Respiratory Rate: 16, Pulse Oximetry: 100, Weight: 80.600 Oxygen Flow Rate: 0 Physical Exam General: Alert, no apparent distress. HEENT: moist mucous membranes. Neck: Full range of motion. Respiratory: No respiratory distress speaking in full sentences Chest: No accessory muscle use. Cardiovascular: Appears well perfused Neurologic: Oriented x4. Spine: No spinal process tenderness or deformities including step-offs or edema. No saddle paresthesia no SI joint tenderness negative straight leg raise no obvious muscle rigidity but tenderness with palpating lumbar paraspinal muscles. Psychiatric: Normal mood and affect. Skin: Normal color, warm and dry. No edema, no ecchymosis. Progress Results/Orders Results/Orders Orders - JOLLY BOWMAN BIOLOGICAL SCIENCE AIDE Urinalysis, Cult If Indicated (12/26/24 09:47) Vital Signs 12/26/24 09:05 Temp 98.4 Pulse 57 Resp 16 Pulse Ox 100 O2 Flow Rate 0 Medical Decision Making Additional information obtaine: old records Findings No triggering events falls no saddle paresthesia. Some muscle soreness to palpate the lumbar paraspinal muscles but no spinous process tenderness indicating injury. Toradol provided and tizanidine ibuprofen to follow up with primary care Differential Dx:Considerations: Musculoskeletal pain, Strain, Urinary tract infection Departure Time of Disposition: 09:51 Disposition: 01 HOME / SELF CARE / HOMELESS Impression: Primary Impression: Low back pain Condition: Stable Discharge Instructions: Back Exercises Additional Instructions: Take medications as prescribed and follow up with primary care, urgent care, [facility] Referrals: NO PRIMARY CARE PROVIDER (PCP) Prescriptions Tizanidine Hcl (ZANAFLEX) 4 Mg Tablet 1 TAB PO Q8H PRN for muscle spasms for 10 Days, #30 TAB 0 Refills Prov: JOLLY BOWMAN NP 12/26/24 Ibuprofen (Ibu) 600 Mg Tablet 1 TAB PO Q6H for 7 Days, #28 TAB 0 Refills Prov: JOLLY BOWMAN NP 12/26/24 Education Educated: Patient Educated regarding: diagnosis, treatment, need for follow up Signature Scribe Signature: No scribe Attestation: The note accurately reflects work and decisions made by me.Jolly LYONS 12/26/24 09:30 JOLLY BOWMAN NP Dec 26, 2024 09:30
[2024-12-26] MEDS ORDERED: ketorolac trometh 30MG/ML vial 30 MG/ML VIAL IM ONE (09:50)
[2024-12-26] MEDS ORDERED: TIZA4TAB11 PO (09:52)
[2024-12-26] MEDS ORDERED: IBUP-862 PO (09:52)
== END 2024-12-26 10:11 | disposition home or self-care (01) ==
LOC: ER 09:05
DX: M54.50 Low back pain, unspecified (principal); Z88.5 Allergy status to narcotic agent; Z79.899 Other long term (current) drug therapy
CPT/HCPCS: 99283

== ENCOUNTER 2025-01-29 08:48 | Emergency (ER) | payer MEDICAID ==
[~2025-01-29] VITALS: Ht 162.6 cm; Wt 85.8 kg
[~2025-01-29 08:48] MED LIST changes: +IBUP-862 PO; +TIZA4TAB11 PO
[2025-01-29 09:11] VITALS: TEMP 97.5
[2025-01-29 09:31] LABS: LEUKOCYTE ESTERASE ,URINE NEGATIVE (Neg); NITRITES, URINE NEGATIVE (Neg); OCCULT BLOOD,URINE NEGATIVE (Neg)
[2025-01-29 09:34] LABS: UA COLLECTION TYPE CLN CATCH MIDSTREAM
[2025-01-29 09:35] LABS: SQUAMOUS EPITHELIAL CELL,UR MODERATE /LPF (FEW)
[2025-01-29 09:36] LABS: MUCUS STRANDS NONE SEEN /LPF (Neg)
[2025-01-29 09:44] LABS: MEAN PLATELET VOLUME 7.0 FL (7.4-10.4); RED CELL DISTRIBUTION WIDTH 13.8 % (11.5-14.5)
--- NOTE | 2025-01-29 09:52 | Physician Documentation ---
History of Present Illness General Chief Complaint: Abdominal Pain Stated Complaint: ABD PAIN Time Seen by MD: 09:26 Primary Medical Doctor: [facility] History of Present Illness Initial Comments 79-year-old female with history of leukemia not on chemotherapy presented to the ED in view of continuous sharp 10/10 severe abdominal pain in the epigastric region since five days. Patient has a associated sweating, nausea and dry heaving. Patient also has dizziness that feels like she is spinning especially when she gets up from a sitting or sleeping position. Last bowel movement was this morning. Patient denies loss of consciousness or ear problems. Patient never underwent endoscopy or colonoscopy. Does not undergo any chemotherapy but takes B12 for leukemia. Medication Reconciliation Allergies: Coded Allergies: codeine (Verified Allergy, Unknown, 01/29/25) Scheduled Albuterol Sulfate Nebs* (Proventil Nebs*), 1 VIAL NEB Q4H, (Reported) Docusate Sodium (Docusate Sodium), 1 CAP PO Q12H Ibuprofen (Ibu), 1 TAB PO Q6H Lactobacillus Rhamnosus (Culturelle), 1 CAP PO DAILY Pantoprazole Sodium (Pantoprazole Sodium), 40 MG PO DAILY Scheduled PRN Tizanidine Hcl (Zanaflex), 1 TAB PO Q8H PRN for muscle spasms Past Medical History Past Medical History: Leukemia Other Past Medical History: Leukemia Past Surgical History: noncontributory Other Past Surgical History: None Smoking: Non-Smoker Drug Use: none Lives In: Home Occupation: retired Physical Exam Physical Exam Vital Signs: Temperature: 97.5, Source: Oral, Heart Rate: 62, Respiratory Rate: 18, BP: 128/47, Pulse Oximetry: 99, Weight: 85.800 Oxygen Flow Rate: 0 Physical Exam General: Alert, awake, oriented, not in acute distress HEENT: PERRLA, no icterus, pallor, lymphadenopathy, carotid bruit Respiratory system: Bilateral vesicular breath sounds heard, no adventitious breath sounds CVS: S1-S2 heard, no murmurs/rubs/gallop GI: Soft, nontender, no organomegaly, no guarding/rigidity, bowel sounds present Neuro: No focal neurological deficits present Mental status exam: alert and consciousness, orientation, memory, speech - Cranial nerve test: Cranial nerves 2-12 intact - Motor system: Nutrition, Tone 3+, Power 5/5, no involuntary movements - Sensory system: Intact - Reflex testing: Biceps, triceps and knee reflexes 2+ - Cerebellar: Normal Extremities: No edema cyanosis clubbing/deformities Skin: Warm and dry Progress Results/Orders Results/Orders Orders - COLLEEN WILLIAMSON DO Saline Lock (01/29/25 10:13) Ct Abdomen Pelvis (01/29/25 10:13) Completed Orders - COLLEEN WILLIAMSON DO Cbc/Diff (01/29/25 09:17) Lipase (01/29/25 09:17) CMP (01/29/25 09:17) Ua W/Microscopic, Cult If Ind (01/29/25 09:22) Man Diff (01/29/25 09:35) Ondansetron Inj. (Zofran 4mg/2ml Vial) (01/29/25 10:15) Morphine 4mg/Ml Inj. (Morphine Inj.) (01/29/25 10:15) Electrocardiogram (01/29/25 10:13) Normal Saline 1000ml (0.9% Sodium Chlori (01/29/25 10:15) Ct Abdomen Pelvis (01/29/25 10:13) Hs Troponin I W Calculations (01/29/25 10:13) Hs Troponin I W Calculations (01/29/25 12:13) MG (01/29/25 09:35) Iohexol 300mg/Ml 100ml Inj. (Omnipaque-3 (01/29/25 11:35) Prochlorperazine Inj (Compazine Inj) (01/29/25 12:40) Medications Received in ER Medications (Trade) Dose Ordered Sig/Dede Route PRN Reason Start Time Stop Time Status Last Admin Dose Admin (Zofran 4mg/2ml vial) 4 mg ONCE ONCE IV 01/29/25 10:15 01/29/25 10:16 DC 01/29/25 10:32 4 MG (morphine inj.) 4 mg ONCE ONCE IV 01/29/25 10:15 01/29/25 10:16 DC 01/29/25 10:32 4 MG (0.9% sodium chloride (NS) 1000ml IV soln) 1,000 ml ONCE ONCE IVB 01/29/25 10:15 01/29/25 10:16 DC 01/29/25 10:32 1,000 ML Vital Signs 01/29/25 01/29/25 01/29/25 01/29/25 09:11 09:38 10:32 11:01 Temp 97.5 Pulse 62 Resp 17 18 19 17 B/P (MAP) 128/47 Pulse Ox 99 O2 Flow Rate 0 01/29/25 01/29/25 11:21 12:11 Pulse 44 41 Resp 17 17 B/P (MAP) 103/49 (67) 105/46 (65) Pulse Ox 100 100 O2 Flow Rate 0 0 Laboratory Tests Test 01/29/25 09:22 01/29/25 09:35 01/29/25 12:00 Urine Specimen Description Cln catch midstream Urine Color Yellow Urine Clarity Slightly cloudy Urine pH 6.[address] 1.025 Urine Protein Negative Urine Glucose (UA) Negative Urine Ketones Negative Urine Occult Blood Negative Urine Nitrite Negative Urine Bilirubin Negative Urine Urobilinogen 0.2 Urine Leukocyte Esterase Negative Urine RBC 0-2 Urine WBC 0-4 Urine Squamous Epithelial Cells Moderate Urine Transitional Epithelial Cells Few Urine Bacteria Few Urine Mucus None seen Urine Culture Indicated Not ind Volume Urine Centrifuged 10 ml Urine Comment White Blood Count 19.9 H Red Blood Count 3.56 L Hemoglobin 12.0 Hematocrit 35.0 Mean Corpuscular Volume 98.2 H Mean Corpuscular Hemoglobin 33.7 H Mean Corpuscular Hemoglobin Concent 34.3 Red Cell Distribution Width 13.8 Platelet Count 189 Mean Platelet Volume 7.0 L Neutrophils (%) (Auto) 18.0 L Lymphocytes (%) (Auto) 80.2 H Monocytes (%) (Auto) 1.4 L Eosinophils (%) (Auto) 0.3 Basophils (%) (Auto) 0.1 Neutrophils # (Auto) 3.6 Lymphocytes # (Auto) 15.9 H Monocytes # (Auto) 0.3 Eosinophils # (Auto) 0.1 Basophils # (Auto) 0.0 CBC Comment Differential Total Cells Counted 100 Neutrophils % (Manual) 13.0 L Lymphocytes % (Manual) 86.0 H Monocytes % (Manual) 1.0 L Platelet Estimate Normal Red Blood Cell Morphology Perf Basophilic Stippling Anisocytosis 1+ Macrocytosis 1+ Sodium Level 143 Potassium Level 4.1 Chloride Level 109 H Carbon Dioxide Level 26.9 Anion Gap 7 L Blood Urea Nitrogen 16 Creatinine 0.72 Estimated GFR/1.73 m2 79 BUN/Creatinine Ratio 22.2 H Glucose Level 95 Calcium Level 8.8 Magnesium Level 2.3 Total Bilirubin 2.3 H Aspartate Amino Transf (AST/SGOT) 22 Alanine Aminotransferase (ALT/SGPT) 13 Alkaline Phosphatase 86 Troponin I High Sensitivity 16 15 Total Protein 7.7 Albumin 4.0 Globulin 3.7 Albumin/Globulin Ratio 1.1 Lipase 42 Chemistry Comments Troponin I High Sens Percent Delta 6 Troponin I Hi Sens Absolute Change -1 Medical Decision Making Additional information obtaine: N/A Findings No ;lab abnormalities, evaluating if the patient needs further imaging? Differential Diagnosis Peptic ulcer disease, gastritis, cholecystitis, diverticulitis, mesenteric ischemia, acute pancreatitis, acute on chronic pancreatitis Departure Disposition: HOME / SELF CARE / HOMELESS Impression: Primary Impression: Epigastric abdominal pain Additional Impression: Nausea and vomiting Condition: Improved Discharge Instructions: Abdominal Pain (Nonspecific) Referrals: NO PRIMARY CARE PROVIDER (PCP) Prescriptions Prochlorperazine Maleate (Compazine) 10 Mg Tablet 1 TAB PO Q6H for 7 Days, #28 TAB 0 Refills Prov: COLLEEN WILLIAMSON DO 01/29/25 ONDANSETRON ODT 4mg tablet (ONDANSETRON ODT) 4 Mg Tab.rapdis 1 TAB PO Q6H PRN PRN for nausea/vomiting for 4 Days, #16 TAB 0 Refills Prov: COLLEEN WILLIAMSON DO 01/29/25 Education Educated: Patient Educated regarding: diagnosis, treatment, prognosis, need for follow up Additional Comment Additional Comment Date: Jan 29, 2025 Time: 11:57 This is an attending supervisory note for the resident of record. I have personally participated in care of this patient, has been present during critical and/or winslow portions of the patient's service, participated in the evaluation, and provided major portion of medical decision-making, independently interpreted imaging and laboratory studies and participated in disposition of this patient. This is a 79-year-old female with self-reported history of leukemia, currently not on chemotherapy, presented for evaluation of epigastric abdominal pain accompanied by nausea or vomiting. The pain is moderate to severe in its intensity, nonradiating, not migratory. The particular palliating or aggravating factors were elicited with the patient. Did not attempt to treat it. She also reports nausea. Did not attempt to take any medication for it. Has not experienced this in the past. Denies any chest pain or difficulty breathing. She did not report some vertiginous symptoms. Denies any headache, vision or hearing changes. Denies any chest pain or difficulty breathing. No concern for tobacco, alcohol or illicit substances use. GENERAL: Awake, alert, oriented, GCS 15, no apparent distress, non-toxic appearing, answers questions, follows commands appropriately. Examined in bed 10. HEENT: Atraumatic, normocephalic, pupils equal, extraocular muscles intact, sclerae anicteric, mucus membranes moist, oropharynx is clear, no stridor. NECK: supple, full active range of motion, trachea midline, no thyromegaly, no lymphadenopathy, no JVD. CARDIOVASCULAR: regular rate/rhythm, no murmurs/gallops/rubs, Pulses are 2+ in all extremities and symmetric. Capillary refill less than 2 seconds. PULMONARY: Nonlabored, good air movement ,no respiratory distress, speaking in full sentences, clear to auscultation bilaterally, no wheezing, no ronchi, no rales, no accessory muscle use. GASTROINTESTINAL: Soft, epigastric tenderness to palpation without guarding or rebound reproducing chief complaint as well as right lower quadrant tenderness to palpation with a involuntary guarding and some questionable rebound, non- distended, normal active bowel sounds, no organomegaly, no pulsatile masses, no CVA tenderness. NEUROLOGIC: Lucid with normal mental status. Normal facial symmetry. Moves all extremities symmetrically and with purpose. No truncal ataxia. Speech is fluid without evidence of dysarthria or aphasia, no focal deficits appreciated. MUSCULOSKELETAL: There is full range of motion of all extremities. There is no joint pain or joint swelling or joint erythema. There is no muscle pain or tenderness or swelling. EXTREMITIES: warm, well-perfused, no cyanosis, no clubbing, no edema, no acute deformities. Skin: warm, dry, no rashes or lesions, no jaundice, no petechiae orpurpura. No ecchymosis. PSYCHIATRIC: Normal affect, normal insight, normal concentration. Focused exam: [] EKG was obtained and interpreted by myself shows sinus bradycardia, rate of 48, normal GA interval, wide QRS, no QT prolongation, normal axis, no STEMI Facility Status: ED Holds, RME process The plan was discussed with the patient, who demonstrates clear understanding of the plan and is in agreement with the plan unless otherwise noted in the chart. All questions have been answered, all concerns were addressed unless otherwise documented. I was available throughout their ED stay for frequent reassessment and questions. Differential Diagnoses (considered and possible or likely): [With a respect to her abdominal pain, Differential diagnosis considered includes acute appendicitis, acute cholecystitis, pancreatitis, gastritis, PUD, diverticulitis, mesenteric ischemia, abdominal aortic aneurysm, bowel obstruction, enteritis, colitis, fecal impaction, volvulus, IBS, inflammatory bowel disease, specific food intolerance, peritonitis, perforated viscous, malignancy, UTI, abscess, and abdominal pain NOS. Pelvic source of pain was also considered including endometritis, dysmenorrhea, ovarian cyst, ovarian torsion, PID, TOA, cervicitis, vaginitis, or uterine fibroid. History, physical exam, and workup exclude many of the more serious causes listed above. With a respect to spinning sensation differential includes but not limited to labyrinthitis, neuritis, BPPV, less likely central causes of vertigo such as stroke. Given the fact that it has been five days, it is likely to show up on noncontrasted CT.] ??Differential Diagnoses (considered and unlikely, not requiring evaluation currently): [See above. No evidence of trauma] MDM Data Please see HPI for the following: Independent Historians and external Records Review. Historian: [Patient] Independent Historians: ?[Record review] Medication Management: [Reviewed medication list] Social History and determinants: [Reviewed] Please see the body of the note for the following: Any independent interpretations of ECG, imaging studies. All vitals signs/haemodynamics, ordered tests were independently reviewed and interpreted by myself. Nursing triage complaint and vitals reviewed, additional nursing notes were reviewed as available and I agree unless otherwise noted or documented in contradiction in the chart Vital Signs: Independently reviewed Labs: Independently interpreted Imaging: Independently interpreted Old Medical Records: Independently reviewed, see HPI for relevant summary and information Pulse Oximetry: [97%] interpreted as [normal on room air] by me [Market Development Analyst: [Regular Rate, Regular rhythm, no ectopy, NSR] reviewed and interpreted by me] Additionally notably showing: [Hemodynamics reviewed. The patient isn't febrile, not tachycardic, no evidence of hypotension respiratory distress. 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 The patient does have 80% lymphocytes. This is consistent with a CLL. Metabolic panel notable for dehydration. Total bilirubin is slightly elevated. Lipase is normal. Troponin is negative. UA is nondiagnostic for UTI. Advanced imaging of abdomen and pelvis was obtained. On my independent int erpretation of the images, splenomegaly noted, there was no free air, calcification of aorta, stool in the ascending colon and cecum diverticulosis without associated stranding decreasing suspicion for diverticulitis. Radiology read confirms.] Tests considered but not ordered include: [Not applicable] Social Determinants of Health Impact: Patient was evaluated in [facility] [place] healthcare due to below par ratio of patient to medical providers. [] Comorbid Conditions Impacting Present Evaluation and Care/Treatment: [CLL] Management Discussions with other Healthcare Providers: [] Treatment and Disposition Medication Management (Given or considered): [Nausea management and pain management, fluid resuscitation]. See EMR for details Consideration for Hospitalization/Escalation/Deescalation of Care: Admission for observation has been considered, [however the patient is able to tolerate p.o., their symptoms are controlled, they are able to rely on oral medications, and their chief complaint/diagnosis can be managed on outpatient basis.] ?ED Course:?[The patient is able to tolerate p.o..] ?Shared decision making:?[Patient is hemodynamically stable for discharge home with follow with their primary care provider. [ ] Specific and cautious return precautions provided and discussed with full understanding. Any incidental f indings were also discussed and follow up recommendations given. [] All questions answered. Patient/family were able to verbalize back return precautions. Patient/family agree to plan. Copies of imaging and laboratory studies were provided.] Code status:?FULL Please see the full Electronic Medical Record for full details of nursing documentation, medications list, other records of complete past medical history and conditions, vital signs, laboratory studies, and any radiologic study interpretations by radiologists. Portions of this note were completed using [employer] dictation software and as a result there may exist minor errors in spelling. I have reviewed elements of past family and social history and agree as included in note. Signature Scribe Signature: None Attestation: Document created by the resident, reviewed by the ED physician Date: Jan 29, 2025 Time: 12:01 This note accurately reflects clinical decisions, work performed by myself, DO NUVIA Ritter SIVA, RES Jan 29, 2025 09:52 COLLEEN WILLIAMSON DO Jan 29, 2025 12:01
[2025-01-29 10:13] LABS: LYMPHOCYTES % (MANUAL) 86.0 % (21-51); MONOCYTES % (MANUAL) 1.0 % (2-12); NEUTROPHILS % (MANUAL) 13.0 % (42-75); PLATELET ESTIMATE NORMAL
[2025-01-29] MEDS: ondansetron/PF 4mg/2ml inj IV ONE (10:32)
[2025-01-29] MEDS: normal saline 1000ML IV soln IVB ONE (10:32)
[2025-01-29] MEDS: morphine 4 MG/ML inj SYRINge IV ONE (10:32)
--- NOTE | 2025-01-29 10:33 | ELECTROCARDIOGRAPH REPORT ---
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 AL Kern Measurements Intervals [place] Rate: 48 P: 20 [place]: 184 QRS: 1 QRSD: 118 T: 106 QT: 464 QTc: 415 Interpretive Statements Sinus bradycardia Nonspecific intraventricular conduction delay Minimal ST depression, lateral leads Electronically Signed On 01-30-2025 16:52:[address] AL Kern Please click the below link to view image of tracing.
[2025-01-29 10:37] LABS: CREATININE 0.72 MG/DL (0.40-0.90); TOTAL CARBON DIOXIDE 26.9 MMOL/L (24-32); eCRCL 57 ML/MIN; eGFR 79 ML/MIN
[2025-01-29] MEDS ORDERED: iohexol 300mg/ml 100ml inj. ONE (11:35)
--- NOTE | 2025-01-29 12:09 | RADIOLOGY REPORT ---
Indication: epigastric and RLQ pain, nausea Technique: CT axial images of the abdomen and pelvis are obtained with intravenous contrast. Coronal and sagittal reformats were obtained. Radiation Dose Information: CTDI volume is 33 mGy. Dose-length product is 1784 mGy*cm Comparison: CT CT ABDOMEN PELVIS W/ IV CONTRAST on DOS: 11/08/24 FINDINGS: Lung bases demonstrate atelectasis. Adrenal glands unremarkable. Spleen measures 12 cm craniocaudal. Pancreas unremarkable. No enhancing hepatic lesion. Gallbladder contracted/removed. Kidneys demonstrate no hydronephrosis. Small hiatal hernia. Stomach partially distended. Small bowel loops are normal in caliber. Colonic diverticular disease. Moderate volume stool within the colon, especially within the cecum /ascending colon. Appendix nonvisualized. No secondary signs for appendicitis present. Abdominal aortic atherosclerotic disease. Bladder distended. No free pelvic fluid. Small fat containing inguinal hernias. No inguinal lymphadenopathy. [id number] bilateral sacroiliac degenerative joint disease. Moderate thoracolumbar degenerative disc disease and facet hypertrophic changes. IMPRESSION: Appendix nonvisualized. No secondary signs for appendicitis present. Moderate volume stool in the colon especially within the cecum and ascending colon. Colonic diverticular disease. Atherosclerotic disease. Other findings as described.
[2025-01-29] MEDS ORDERED: PROC-8 PO (12:51)
[2025-01-29] MEDS ORDERED: ONDA-243 PO (12:51)
[2025-01-29 13:18] VITALS: BP 125/57; PULSE 57; RESP 19; O2SAT 100
== END 2025-01-29 13:27 | disposition home or self-care (01) ==
LOC: ER 08:49
DX: R10.13 Epigastric pain (principal); R11.2 Nausea with vomiting, unspecified; R42 Dizziness and giddiness; Z88.5 Allergy status to narcotic agent; Z79.899 Other long term (current) drug therapy
CPT/HCPCS: 36415; 74177; 80053; 81001; 83690; 83735; 84484; 85007; 85025; 93005; 96361; 96374; 96375; 99285; J0780; J2270; J2405; J7030; Q9967